=== PATIENT | male | born 1935 | race Caucasian/White ===

== ENCOUNTER 2016-06-04 03:36 | Inpatient (IN) ==
--- NOTE | 2016-06-04 04:25 | Emergency Department Note ---
Disposition Clinical Impression: RUQ pain, Hepatic lesion, Biliary colic Disposition: Admitted As Inpatient Condition: Fair Referrals: Jose Juan Colón MD [Primary Care Provider] - Forms: Work/School Release, ED Satisfaction Letter General Adult HPI - General Chief complaint: ED Abdominal Pain Stated complaint: abd pain Time Seen by Provider: 06/04/16 04:00 Source: patient, family Limitations: no limitations Nursing Notes Reviewed: Yes Vital Signs Reviewed: Yes - History of Present Illness HPI Narrative: 80 y/o male with 3 days of intermittent RUQ and epigastric pain. Usually worse after eating. Got worse at 10pm this evening. Last meal was at 5pm. Since 10 he has had constant pain in the RUQ and nausea. No surgical history. PMH of Afib on Xarelto, HTN, and DM on metformin. No fever. No CP or SOB. Radiation: non-radiation Pain Severity: severe Pain Scale: 10 Quality: aching Consistency: constant Improves with: nothing Worsens with: other (movement) Associated symptoms: Reports: denies other symptoms Treatments Prior to Arrival: none - Related Data Previous Rx's Medication Instructions Recorded Rivaroxaban [Xarelto] 20 mg PO DAILY #30 tablet 09/24/15 Allergies Allergy/AdvReac Type Severity Reaction Status Date / Time No Known Allergies Allergy Verified 09/24/15 16:26 All systems ED: reviewed and negative except as stated. Constitutional: Denies: fever Cardiovascular: Denies: chest pain Respiratory: Denies: cough Gastrointestinal: Reports: abdominal pain, nausea. Denies: vomiting, diarrhea Genitourinary: Denies: dysuria Musculoskeletal: Denies: back pain Integumentary: Denies: rash Endocrine: Denies: fatigue Past Medical History - Past Medical History Medical history: Reports: DVT, hypertension - Social History Smoking Status: Never smoker Smokeless Tobacco Status: No Alcohol use: Reports: none Drug use: Reports: none Physical Exam - General Limitations: no limitations General appearance: alert, in no apparent distress - Head Head exam: atraumatic - Eye Eye exam: Present: normal appearance - ENT ENT exam: normal exam, normal oropharynx - Neck Neck exam: Present: normal inspection - Chest Chest inspection: Present: normal inspection - Respiratory Respiratory exam: Present: normal lung sounds bilaterally. Absent: respiratory distress - Cardiovascular Cardiovascular exam: Present: regular rate, normal rhythm - Abdominal Exam Abdominal exam: Present: soft, tenderness (RUQ. Voluntary guarding. No pain in other location in abdomen. No generalized peritonitis.) - Extremities Exam Extremities exam: Present: normal inspection - Back Exam Back exam: Present: normal inspection - Neurological Exam Neurological exam: Present: alert, oriented X3 - Psychiatric Psychiatric exam: Present: normal affect, normal mood - Skin Skin exam: Present: warm, dry Course Course Narrative: Due to pain after eating in the RUQ i am concerned about his gallbladder. Will obtain labwork and a CT scan of the abd/pelvis. Will treat his pain while he is here. - Reevaluation(s) Reevaluation #1: CT shows dilated gallbladder with thickened wall and liver lesions which are consistent with malignancy. Labwork shows elevated transaminitis but no WBC count, no fever. Will page general surgery for consultation. Spoke with Dr Don who agreed to be a technical solutions consultant on this case Spoke with Dr Romero from oncology who says she will see him today. She said he will likely need a biopsy during this stay. Will call hospitalist for admission Vital Signs Temperature 97.9 F 06/04/16 03:39 Pulse Rate 90 06/04/16 03:39 Respiratory Rate 18 06/04/16 03:39 Blood Pressure 182/79 06/04/16 03:39 O2 Sat by Pulse Oximetry 95 06/04/16 03:39 Temperature 97.9 F 06/04/16 03:39 Pulse Rate 90 06/04/16 06:31 Respiratory Rate 18 06/04/16 06:31 Blood Pressure 173/103 06/04/16 06:31 O2 Sat by Pulse Oximetry 94 L 06/04/16 06:31 Oxygen Delivery Oxygen Delivery Room Air Medical Decision Making - Medical Records Medical records reviewed: Yes I reviewed the patient's medical records. - Lab Data Lab results reviewed: Yes I reviewed the patient's lab results. Result diagrams: 06/04/16 04:45 06/04/16 04:45 Lab Results 06/04/16 06/04/16 06/04/16 Range/Units 04:45 04:45 04:45 WBC 10.2 (4.3-11.1) K/mcL RBC 4.63 (4.19-5.50) M/mcL Hgb 15.5 (12.9-16.9) g/dL Hct 45.0 (37.5-50.1) % MCV 97.2 (83.0-100.0) fL MCH 33.5 H (28.0-33.3) pg MCHC 34.4 (31.6-35.5) g/dL RDW 12.5 (11.5-14.5) % Plt Count 136 L (140-400) K/mcL MPV 11.0 (9.4-12.4) fL Immature Gran % 0.4 (0-4) % Seg Neutrophils % 77.5 % Lymphocytes % 13.4 % Monocytes % 8.3 % Eosinophils % 0.1 % Basophils % 0.3 % Neutrophils # 7.9 (1.6-8.9) K/mcL Lymphocytes # 1.4 (0.6-4.6) K/mcL Monocytes # 0.9 (0.0-1.3) K/mcL Eosinophils # 0.0 (0.0-0.6) K/mcL Basophils # 0.0 (0.0-0.2) K/mcL PT (9.4-12.1) Seconds INR APTT (26.0-36.0) Seconds Sodium 138 (136-145) mEq/L Potassium 4.1 (3.5-4.5) mEq/L Chloride 102 (98-109) mEq/L Carbon Dioxide 25 (19-29) mEq/L BUN 23 (8-26) mg/dL Creatinine 1.37 H (0.72-1.25) mg/dL Est GFR ( Amer) > 60 (> 60) Est GFR (Non-Af Amer) 50 L (> 60) BUN/Creatinine Ratio 17 (6-26) Glucose 241 H (70-99) mg/dL Calculated Osmolality 298 (280-300) Lactic Acid 2.5 H (0.5-2.2) mmol/L Calcium 9.6 (8.6-10.8) mg/dL Total Bilirubin 1.4 H (0.2-1.2) mg/dL Direct Bilirubin 0.7 H (0.0-0.5) mg/dL Indirect Bilirubin 0.7 (0.0-1.2) mg/dL AST 72 H (5-34) Units/L ALT 57 H (0-55) Units/L Alkaline Phosphatase 193 H (38-126) Units/L Serum Total Protein 7.4 (6.0-8.3) g/dL Albumin 3.6 (3.5-5.0) g/dL Globulin 3.8 H (2.4-3.5) g/dL Albumin/Globulin Ratio 0.9 L (1.1-2.2) Lipase 40 (8-78) Units/L 06/04/16 Range/Units 04:45 WBC (4.3-11.1) K/mcL RBC (4.19-5.50) M/mcL Hgb (12.9-16.9) g/dL Hct (37.5-50.1) % MCV (83.0-100.0) fL MCH (28.0-33.3) pg MCHC (31.6-35.5) g/dL RDW (11.5-14.5) % Plt Count (140-400) K/mcL MPV (9.4-12.4) fL Immature Gran % (0-4) % Seg Neutrophils % % Lymphocytes % % Monocytes % % Eosinophils % % Basophils % % Neutrophils # (1.6-8.9) K/mcL Lymphocytes # (0.6-4.6) K/mcL Monocytes # (0.0-1.3) K/mcL Eosinophils # (0.0-0.6) K/mcL Basophils # (0.0-0.2) K/mcL PT 28.8 H (9.4-12.1) Seconds INR 2.6 APTT 45.0 H (26.0-36.0) Seconds Sodium (136-145) mEq/L Potassium (3.5-4.5) mEq/L Chloride (98-109) mEq/L Carbon Dioxide (19-29) mEq/L BUN (8-26) mg/dL Creatinine (0.72-1.25) mg/dL Est GFR ( Amer) (> 60) Est GFR (Non-Af Amer) (> 60) BUN/Creatinine Ratio (6-26) Glucose (70-99) mg/dL Calculated Osmolality (280-300) Lactic Acid (0.5-2.2) mmol/L Calcium (8.6-10.8) mg/dL Total Bilirubin (0.2-1.2) mg/dL Direct Bilirubin (0.0-0.5) mg/dL Indirect Bilirubin (0.0-1.2) mg/dL AST (5-34) Units/L ALT (0-55) Units/L Alkaline Phosphatase (38-126) Units/L Serum Total Protein (6.0-8.3) g/dL Albumin (3.5-5.0) g/dL Globulin (2.4-3.5) g/dL Albumin/Globulin Ratio (1.1-2.2) Lipase (8-78) Units/L - Radiology Data Radiology results reviewed: Yes I reviewed the patient's radiology results. Abdomen/Pelvis CT 06/04/16 04:09 IMPRESSION: Multifocal low-density hepatic lesions, predominantly in the superior right hepatic lobe, consistent with malignancy. Necrotic portal caval lymph nodes concerning for metastatic disease. An abnormal cardiophrenic lymph node is also present. Indeterminate nodules in the right lower lobe. Mild gallbladder distention and wall thickening with sizable calcified stone at the gallbladder neck. Marked prostatomegaly. Nonspecific"constantino mesentery" with mesenteric fat expansion. RECOMMENDATIONS: Consider further evaluation of liver lesions with biphasic CT or MRI. D/ / Jorge Patel MD / Jorge Patel MD Interpreting Provider: Jorge Patel MD Attestation Statement - Attestation Attestation: IAnshu MD, personally performed a history and physical exam of the patient and discussed their management with the resident. I reviewed the resident's note and agree with the documented findings, medical decision making , and plan of care. 80-year-old male presents to the emergency department with a complaint of right upper quadrant abdominal pain over the past few days but acutely worse tonight. Some nausea but no vomiting. No fever. On examination patient is a well-developed well-nourished elderly male in no acute distress. He is alert and oriented 3. There is no cyanosis or diaphoresis. Breath sounds are clear and equal bilaterally. Heart regular rate and rhythm. Abdomen is soft with moderate right upper quadrant tenderness on direct palpation. No guarding or rebound tenderness. Bowel sounds normal. Labs reviewed. CBC normal with mild elevation of hepatic enzymes. CT obtained and showed multiple apparent metastatic lesions within the liver with central necrosis. Patient was discussed with the surgeon hydro excavation operator and also the oncologist hydro excavation operator. The hospitalist, Dr. Martin, was consulted and accepted admission of the patient.
[2016-06-04] MEDS ORDERED: Ondansetron 4 MG/2 ML VIAL IVP ONE (04:26)
[2016-06-04] MEDS ORDERED: *HR* HYDROmorphone (PF) 1 MG/ML SYRINGE IVP ONE ×2 (04:26→06:47)
[2016-06-04 04:53] LABS: Basophils % 0.3 %; Eosinophils % 0.1 %; Hemoglobin 15.5 g/dL (12.9-16.9); Immature Granulocytes % 0.4 % (0-4); Lymphocytes # 1.4 K/mcL (0.6-4.6); Lymphocytes % 13.4 %; Mean Corpuscular HGB Conc 34.4 g/dL (31.6-35.5); Mean Corpuscular Hemoglobin 33.5 pg (28.0-33.3); Mean Corpuscular Volume 97.2 fL (83.0-100.0); Monocytes # 0.9 K/mcL (0.0-1.3); Monocytes % 8.3 %; Neutrophils # 7.9 K/mcL (1.6-8.9); Platelet Count 136 K/mcL (140-400); Red Blood Count 4.63 M/mcL (4.19-5.50); Red Cell Distribution Width 12.5 % (11.5-14.5); Segmented Neutrophils % 77.5 %
[2016-06-04 04:58] LABS: INR 2.6; Prothrombin Time 28.8 Seconds (9.4-12.1)
[2016-06-04 05:08] LABS: Alanine Aminotransferase 57 Units/L (0-55); Albumin 3.6 g/dL (3.5-5.0); Albumin/Globulin Ratio 0.9 (1.1-2.2); Alkaline Phosphatase 193 Units/L (38-126); Aspartate Amino Transferase 72 Units/L (5-34); BUN/Creatinine Ratio 17 (6-26); Bilirubin,Direct 0.7 mg/dL (0.0-0.5); Bilirubin,Indirect 0.7 mg/dL (0.0-1.2); Bilirubin,Total 1.4 mg/dL (0.2-1.2); Blood Urea Nitrogen 23 mg/dL (8-26); Calcium 9.6 mg/dL (8.6-10.8); Carbon Dioxide 25 mEq/L (19-29); Chloride 102 mEq/L (98-109); Globulin 3.8 g/dL (2.4-3.5); Glucose 241 mg/dL (70-99); Lipase 40 Units/L (8-78); Osmolality,Calculated 298 (280-300); Potassium 4.1 mEq/L (3.5-4.5); Sodium 138 mEq/L (136-145); Total Protein 7.4 g/dL (6.0-8.3); eGFR For African Americans > 60 (> 60); eGFR For Non-African Americans 50 (> 60)
[2016-06-04] MEDS ORDERED: 0.9 % Sodium Chloride 1,000 ML IVC ONE (05:46)
[2016-06-04] MEDS ORDERED: Naloxone 0.4 MG/ML INJ IVP PRN (07:50)
[2016-06-04] MEDS ORDERED: *HR* Dextrose 50 % in Water (Syg) 50 ML SYRINGE IVP PRN (07:53)
[2016-06-04] MEDS ORDERED: D5% in Water 1,000 ML IV PRN (07:53)
[2016-06-04] MEDS ORDERED: Dextrose Gel 15 GM PO PRN ×2 (07:53)
--- NOTE | 2016-06-04 08:01 | Internal Med History&Physical ---
Date of Encounter: 06/04/16 Time of Encounter: 07:30 Assessment and Plan (1) RUQ pain Current visit: Yes Status: Acute A week ago, he noticed upper abdominal discomfort with no other associated symptoms. Yesterday night, he suddenly developed severe right upper quadrant and epigastric pain. no nausea. No vomiting. No fever. No shortness of breath. No chest pain. no urinary complaints. No bleeding. He received 0.5 mg of IV Dilaudid 2 with mild improvement of his pain. CT abdomen and pelvis showed multifocal low densities hepatic lesions, necrotic portal caval lymph node, mild gallbladder wall thickening with sizable calcified stone at gallbladder neck. Patchy consolidation in the right lower lobe with volume loss. Findings in CT are suspected of malignancy and possible mild cholecystitis. Oncology and Surgery team consulted in ED. continue pain control with IV dilaudid and [facility]emetics. [facility] (2) Hepatic lesion Current visit: Yes Status: Acute plan as above. (3) HTN (hypertension) Current visit: Yes Status: Acute uncontrolled HTN. could be from pain. hold losartan due to elevated Cr. Hydralazine prn. amlodipine. close monitoring. Qualifiers: Hypertension type: essential hypertension Qualified Code(s): I10 - Essential (primary) hypertension (4) Diabetes mellitus Current visit: Yes Status: Acute sliding insulin scale. diabetic diet. Qualifiers: Diabetes mellitus type: type 2 Diabetes mellitus complication status: without complication Diabetes mellitus termite renewal inspector insulin use: without nursing home use Qualified Code(s): E11.9 - Type 2 diabetes mellitus without complications (5) DVT (deep venous thrombosis) Current visit: No Status: Chronic Patient had right pulmonary embolism and lower extremity DVT over 5 years ago. He has been on anticoagulation since that time. Currently, he takes Xarelto. 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 metoprolol bid. Qualifiers: Atrial fibrillation type: chronic Qualified Code(s): I48.2 - Chronic atrial fibrillation Internal Medicine - H&P: HPI Chief complaint: RUQ pain for 3 days Admitted From: Home Plans for Post Hospital Care: Home History of present illness: Mr. Mae is a 80 year old male with past medical history of atrial fibrillation on Xarelto, hypertension, diabetes mellitus on metformin and chronic left vocal cord paralysis for 10 years. A week ago, he noticed upper abdominal discomfort for week no other associated symptoms. Yesterday night, he suddenly developed severe right upper quadrant and epigastric pain. no nausea. No vomiting. No fever. No shortness of breath. No chest pain. no urinary complaints. No bleeding. No syncope. No headaches. No focal deficit. No lower extremity edema. He has bowel incontinence for years. In our ED, he received 0.5 mg of Dilaudid 2 with mild improvement of his abdominal pain. CT of the abdomen and pelvis revealed multiple hepatic lesions and necrotic portal caval lymph nodes suspicious for malignancy and mild gallbladder wall thickening. Patient and son are aware of his suspected diagnosis of liver cancer. Oncology service and surgery service consulted in ED. On arrival to the floor, patient still complains of right upper quadrant and epigastric pain of moderate intensity. Past Med Surg Social Fam HX - Past Medical History Medical history: DVT, hypertension - Social History Smoking Status: Never smoker Smokeless Tobacco Status: No Alcohol use: none Drug use: none Internal Medicine - H&P: Meds Rivaroxaban [Xarelto] 20 mg PO DAILY #30 tablet 09/24/15 [Rx] Atenolol [Tenormin] 50 mg PO DAILY 06/04/16 [History] Fluticasone Propionate Nasal [Flonase] 50 mcg NS DAILY 06/04/16 [History] Loratadine [Allergy Relief] 10 mg PO DAILY 06/04/16 [History] Losartan Potassium [Cozaar] 50 mg PO DAILY 06/04/16 [History] Metformin [Glucophage] 750 mg PO BID 06/04/16 [History] Multivit-Min/FA/Lycopen/Lutein [Centrum Silver Men Tablet] 1 tab PO DAILY [History] Allergies dabigatran etexilate [From Pradaxa] Adverse Reaction (Unknown, Verified 07:21) Migraine fesoterodine [From Toviaz] Adverse Reaction (Unknown, Verified 06/04/16 07:21) See Comments URINARY RETENTION lisinopril Adverse Reaction (Unknown, Verified 06/04/16 07:21) See Comments URINARY RETENTION All Systems PM: A 10-system review of systems was performed and is negative for pertinent findings except as documented above in the HPI. - Constitutional Vitals: Temp Pulse Resp BP Pulse Ox 97.9 F 90 16 179/101 94 L 06/04/16 03:39 06/04/16 06:31 06/04/16 07:38 06/04/16 07:38 06/04/16 06:31 General appearance: Present: cooperative, A&O X 3, morbidly obese, pleasant, no acute distress, answers questions appropriately - Eye Eye exam: Present: PERRL, sclera anicteric - ENT ENT exam: Present: mucous membranes moist - Neck Neck exam general surgery: Present: supple, trachea midline - Respiratory Respiratory exam: Present: decreased breath sounds (Right lower lung field). Absent: rales, wheezes - Cardiovascular Cardiovascular exam: Present: RRR - GI/Abdominal GI/Abdominal exam: Present: normal bowel sounds, soft. Absent: distended, tenderness - Extremities Exam Extremities exam: Present: pedal edema (legs: Bilateral mild swelling, varicose veins.. ) - Back Exam Back exam: Absent: CVA tenderness (L), CVA tenderness (R) - Neurological Exam Neurological exam: Present: alert, oriented X3, no focal deficits, strengths equal and symetr throughout. Absent: facial droop, speech deficit - Skin Skin exam: Absent: rash Internal Med - H&P Results - Labs CBC & Chem 7: 06/04/16 04:45 06/04/16 04:45
[2016-06-04] MEDS: *HR* HYDROmorphone (PF) 1 MG/ML SYRINGE IVP PRN ×4 (08:41→23:37)
[2016-06-04] MEDS: Pantoprazole 40 MG VIAL IVP SCH (08:42)
[2016-06-04] MEDS: *HR* OxyCODONE Immed Rel 5 MG TABLET PO PRN ×3 (08:47→23:37)
[2016-06-04] MEDS: Fluticasone Propionate Nasal 50 MCG/SPRAY BOTTLE NS SCH (08:55)
[2016-06-04] MEDS: Loratadine 10 MG TABLET PO SCH (08:55)
[2016-06-04] MEDS: amLODIPine 5 MG TABLET PO SCH (10:57)
--- NOTE | 2016-06-04 11:26 | General Surgery Consult Note ---
<Lakeshia Vidales - Last Filed: 06/04/16 11:42> Date of Encounter: 06/04/16 Time of Encounter: 11:00 Assessment and Plan (1) Cholelithiasis Current Visit: Yes Status: Acute Will order MRI to further evaluate the bile system, liver and pancreas May have clear liquids Hold Xarelto- last dose 06/03/16 evening IV antibiotics- will order Mefoxin Supportive care/pain control Consider Laparoscopic cholecystectomy with liver biopsies on Tuesday06/07/16 if patient continues to be symptomatic Qualifiers: Cholelithiasis location: gallbladder Cholecystitis presence: with cholecystitis Cholecystitis acuity: acute Biliary obstruction: without biliary obstruction Qualified Code(s): K80.00 - Calculus of gallbladder with acute cholecystitis without obstruction (2) Hepatic lesion Current Visit: Yes Status: Acute MRI to further evaluate Hold Xarelto- last dose 06/03/16 evening Patient will need biopsies when appropriate Consider Laparoscopic cholecystectomy with liver biopsies on Tuesday06/07/16 if patient continues to be symptomatic (3) Atrial fibrillation Current Visit: Yes Status: Chronic Rate controlled Management per medicine service Hold Xarelto- last dose 06/03/16 evening Qualifiers: Atrial fibrillation type: chronic Qualified Code(s): I48.2 - Chronic atrial fibrillation (4) Diabetes mellitus Current Visit: Yes Status: Chronic Hyperglycemia noted Management per medicine service Qualifiers: Diabetes mellitus type: type 2 Diabetes mellitus complication status: without complication Diabetes mellitus jail insulin use: without jail use Qualified Code(s): E11.9 - Type 2 diabetes mellitus without complications (5) HTN (hypertension) Current Visit: Yes Status: Chronic Hypertensive Management per medicine service Qualifiers: Hypertension type: essential hypertension Qualified Code(s): I10 - Essential (primary) hypertension (6) RUQ pain Current Visit: Yes Status: Acute MRI to further evaluate the bile system, liver and pancreas Supportive care/pain control (7) 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 Mae is a very pleasant 80 year old male with a past medical history significant for Atrial Fibrillation, DVT, HTN, pulmonary embolism, left vocal cord paralysis, CVA, type 2 diabetes mellitus, alpha 1 antitrypsen deficiency. He presents to the hospital with a 1 week history of RUQ abdominal discomfort. He states that the pain has been intermittent up until last night. He states that the pain is now severe and constant. Admits to radiating into the back and shoulders. Denies any aggrevating or alleviating factors. Denies any nausea/ vomiting. Denies any changes in bowel habits. He typically has a bowel movement daily and admits to occasional diarrhea which is chronic. Denies any fevers/ chills. Denies any reflux. Admits to shortness of breath which is chronic (may be a little worse than normal). Denies any chest pains. Denies any difficulty with urination. Admit to 5-10lb. unexpected weight loss over the past few weeks. He has had an abnormal CT scan which shows evidence of gallstones/ cholecystitis, liver lesions and necrotic portal lymph nodes. We have been asked to see and evaluate the patient for surgical recommendations. Past Med Surg Social Fam HX - Past Medical History Source: patient, old records reviewed Medical history: atrial fibrillation, cancer (Melanoma left forearm), DVT, diabetes (Type 2), hypertension, pulmonary embolus, other (left vocal cord paralysis, alpha 1 antitrypsein deficiency) Psychiatric history: no psych history - Past Surgical History Surgical History: other (Greenlight photovaporization of the prostate 2013, colonoscopy greater than 10 years ago (normal with Dr. Hunter), Excision of melanoma from left forearm) - Social History Smoking Status: Never smoker Smokeless Tobacco Status: No Alcohol use: none Drug use: none Occupational status: retired Current living situation: Home - Independent Activity Level: Independent ambulation - Family History Mother Living Status: Hx Family Cancer: Yes (breast cancer) Father Living Status: Age at : 52 Cause of : Myocardial infarction Hx Family Cardiac Disorders: Yes Sister Living Status: Cause of : Alzheimer's X 2, Liver disease X 1 Hx Family Endocrine Disorder: Yes (Diabetes Mellitus) Hx Family Neurologic Disorders: Yes (CVA) Son Living Status: Still Living Hx Family Medical Disorders: Yes (alpha 1 antitrysin deficiency) Medications and Allergies Rivaroxaban [Xarelto] 20 mg PO DAILY #30 tablet 09/24/15 [Rx] Atenolol [Tenormin] 50 mg PO DAILY 06/04/16 [History] Fluticasone Propionate Nasal [Flonase] 50 mcg NS DAILY 06/04/16 [History] Loratadine [Allergy Relief] 10 mg PO DAILY 06/04/16 [History] Losartan Potassium [Cozaar] 50 mg PO DAILY 06/04/16 [History] Metformin [Glucophage] 750 mg PO BID 06/04/16 [History] Multivit-Min/FA/Lycopen/Lutein [Centrum Silver Men Tablet] 1 tab PO DAILY [History] Allergies dabigatran etexilate [From Pradaxa] Adverse Reaction (Unknown, Verified 07:21) Migraine fesoterodine [From Toviaz] Adverse Reaction (Unknown, Verified 06/04/16 07:21) See Comments URINARY RETENTION lisinopril Adverse Reaction (Unknown, Verified 06/04/16 07:21) See Comments URINARY RETENTION Review of Systems All systems PM: reviewed and no additional remarkable complaints except as stated (in the HPI) All systems PM: A 10-system review of systems was performed and is negative for pertinent findings except as documented above in the HPI. General Surgery Exam Initial Vital Signs Temp Pulse Resp BP Pulse Ox 97.9 F 90 18 182/79 95 06/04/16 03:39 06/04/16 03:39 06/04/16 03:39 06/04/16 03:39 06/04/16 03:39 - General physical appearance well developed, well nourished, moderate pain - Eyes normal ocular movement - ENT normal mucosa, atraumatic, normocephalic - Neck trachea midline - Respiratory normal respiratory effort, clear to auscultation - Cardiovascular Cardiovascular exam: Present: irregular rhythm (HR- 80's) - Abdomen Abdomen general surgery: Present: bowel sounds present, soft, tender Abdominal Tenderness: Present: RUQ - Integumentary Integumentary general surgery: Present: warm and dry - Neurologic Present: CN 2-12 grossly intact - Psychiatric Psychiatric general surgery: Present: A&Ox3 Exam Initial Vital Signs Temp Pulse Resp BP Pulse Ox 97.9 F 90 18 182/79 95 06/04/16 03:39 06/04/16 03:39 06/04/16 03:39 06/04/16 03:39 06/04/16 03:39 Results - Labs 06/04/16 04:45 06/04/16 04:45 Abnormal lab results MCH 33.5 pg (28.0-33.3) H 06/04/16 04:45 Plt Count 136 K/mcL (140-400) L 06/04/16 04:45 PT 28.8 Seconds (9.4-12.1) H 06/04/16 04:45 APTT 45.0 Seconds (26.0-36.0) H 06/04/16 04:45 Creatinine 1.37 mg/dL (0.72-1.25) H 06/04/16 04:45 Est GFR (Non-Af Amer) 50 (> 60) L 06/04/16 04:45 Glucose 241 mg/dL (70-99) H 06/04/16 04:45 POC Glucose 194 (58-89) H 06/04/16 11:15 Lactic Acid 2.5 mmol/L (0.5-2.2) H 06/04/16 04:45 Total Bilirubin 1.4 mg/dL (0.2-1.2) H 06/04/16 04:45 Direct Bilirubin 0.7 mg/dL (0.0-0.5) H 06/04/16 04:45 AST 72 Units/L (5-34) H 06/04/16 04:45 ALT 57 Units/L (0-55) H 06/04/16 04:45 Alkaline Phosphatase 193 Units/L (38-126) H 06/04/16 04:45 Globulin 3.8 g/dL (2.4-3.5) H 06/04/16 04:45 Albumin/Globulin Ratio 0.9 (1.1-2.2) L 06/04/16 04:45 All other labs normal. - Imaging CT scan - abdomen: report reviewed CT scan - pelvis: report reviewed US - abdomen: report reviewed Additional studies: Abdomen/Pelvis CT 06/04/16 04:09 IMPRESSION: Multifocal low-density hepatic lesions, predominantly in the superior right hepatic lobe, consistent with malignancy. Necrotic portal caval lymph nodes concerning for metastatic disease. An abnormal cardiophrenic lymph node is also present. Indeterminate nodules in the right lower lobe. Mild gallbladder distention and wall thickening with sizable calcified stone at the gallbladder neck. Marked prostatomegaly. Nonspecific"constantino mesentery" with mesenteric fat expansion. RECOMMENDATIONS: Consider further evaluation of liver lesions with biphasic CT or MRI. D/ / Jorge Patel MD / Jorge Patel MD Interpreting Provider: Jorge Patel MD Gallbladder Ultrasound 06/04/16 09:00 IMPRESSION: 1. There are gallstones as well as tumefactive sludge in the gallbladder lumen with a markedly thickened wall and hyperemia along the gallbladder wall. Findings are concerning for acute cholecystitis. 2. The large low-attenuation area noted in the right lobe of the liver, just beneath the diaphragm on the previous CT is not well visualized on the current exam. This may be related to a malignancy versus hepatic abscesses. 3. The ascites seen on the previous CT surrounding the liver is also poorly visualized on the current ultrasound. D/ / 06/04/2016 11:27:40 Forrest Hodgson MD / [email or web address] Interpreting Provider: Forrest Hodgson MD Consult Discharge Plan - Plan Referrals: Jose Juan Colón MD [Primary Care Provider] - - Attending Attestation I examined this patient and my medical decision-making was reviewed with the BAG CUTTER/PA/Advanced Practice Nurse/Resident Physician. I agree with the documented findings, disposition and treatment plan as described except to the extent set forth below. <Jack Don - Last Filed: 06/04/16 13:10> Date of Encounter: 06/04/16 Review of Systems All systems PM: A 10-system review of systems was performed and is negative for pertinent findings except as documented above in the HPI. General Surgery Exam Initial Vital Signs Temp Pulse Resp BP Pulse Ox 97.9 F 90 18 182/79 95 06/04/16 03:39 06/04/16 03:39 06/04/16 03:39 06/04/16 03:39 06/04/16 03:39 Exam Initial Vital Signs Temp Pulse Resp BP Pulse Ox 97.9 F 90 18 182/79 95 06/04/16 03:39 06/04/16 03:39 06/04/16 03:39 06/04/16 03:39 06/04/16 03:39 Results - Labs 06/04/16 04:45 06/04/16 04:45 Abnormal lab results MCH 33.5 pg (28.0-33.3) H 06/04/16 04:45 Plt Count 136 K/mcL (140-400) L 06/04/16 04:45 PT 28.8 Seconds (9.4-12.1) H 06/04/16 04:45 APTT 45.0 Seconds (26.0-36.0) H 06/04/16 04:45 Creatinine 1.37 mg/dL (0.72-1.25) H 06/04/16 04:45 Est GFR (Non-Af Amer) 50 (> 60) L 06/04/16 04:45 Glucose 241 mg/dL (70-99) H 06/04/16 04:45 POC Glucose 194 (58-89) H 06/04/16 11:15 Lactic Acid 2.5 mmol/L (0.5-2.2) H 06/04/16 04:45 Total Bilirubin 1.4 mg/dL (0.2-1.2) H 06/04/16 04:45 Direct Bilirubin 0.7 mg/dL (0.0-0.5) H 06/04/16 04:45 AST 72 Units/L (5-34) H 06/04/16 04:45 ALT 57 Units/L (0-55) H 06/04/16 04:45 Alkaline Phosphatase 193 Units/L (38-126) H 06/04/16 04:45 Globulin 3.8 g/dL (2.4-3.5) H 06/04/16 04:45 Albumin/Globulin Ratio 0.9 (1.1-2.2) L 06/04/16 04:45 All other labs normal. - Attending Attestation The patient is seen in evaluation on the afternoon of 06/04/2016. I agree with the above documentation. It is unclear whether the this process clinically represents acute cholecystitis with cholelithiasis or malignancy. I think a reasonable course of action is to treat him with a short course of antibiotics and hold his Plavix medicine. In several days we will be able to proceed laparoscopically with cholecystectomy and possible laparoscopic liver biopsy, or , hepatic biopsy in interventional radiology department to see if diagnostic tissue can be obtained for overall clinical planning area Jack Don MD FACS
[2016-06-04] MEDS: Insulin LISPRO 300 UNITS/3 ML VIAL SQ SCH ×3 (13:00→20:43)
[2016-06-04] MEDS: cefOXitin 2,000 MG in D5% in Water (Mini-Bag+) 100 ML IVPB SCH ×3 (13:01→23:37)
[2016-06-04 14:33] LABS: Bilirubin,Urine Negative (Negative); Blood,Urine Negative (Negative); Clarity,Urine Clear (Clear); Color,Urine Dark Yellow (Yellow); Glucose,Urine (UA) Normal (Normal); Ketones,Urine Negative (Negative); Leukocyte Esterase,Urine Negative (Negative); Nitrite,Urine Negative (Negative); Protein,Urine 30 mg/dL (Neg-Trace); Specific Gravity,Urine > 1.030 (1.010-1.025); Urobilinogen,Urine Normal (Normal)
[2016-06-04 14:35] LABS: Bacteria,Urine None Seen per hpf (None-Few); Hyaline Casts,Urine None Seen per lpf (None-Few); RBC,Urine 0-3 per hpf (0-3); Squamous Epithelial Cell,Urine Few per lpf (None-Few); WBC,Urine 0-3 per hpf (0-3)
--- NOTE | 2016-06-04 15:42 | Oncology Inp Consult Note ---
Date of Encounter: 06/07/16 Time of Encounter: 15:37 Assessment and Plan (1) Hepatic lesion Status: Acute Assessment and plan: Contiguous lobulated lesion in the dome of the liver with fluid consistency. I reviewed the CT chest dated 06/11/2008 he did not have that lesion at that time. MRI of the abdomen favored more of cystic metastasis than abscess Also necrotic lymph nodes in the upper abdomen Jaundice with direct bilirubin 2.6. AST ALT only mildly elevated. Alkaline phosphatase has actually come down to 150 range from 190 range on admission Elevated neutrophil count of 14,000. He is on IV antibiotics (2) RUQ pain Status: Acute Assessment and plan: Right upper quadrant ultrasound 06/04/2016 showed gallstones with sludge in the gallbladder with markedly thickened wall cyst in with acute cholecystitis. This could be most likely contributing to the pain. Also necrotic lymph nodes near the gallbladder in the portacaval region which could be inflammatory but malignancy cannot be ruled out (3) Atrial fibrillation Status: Chronic Assessment and plan: Currently on Xarelto which is on hold. On admission INR elevated at 2.6. This has come down to 1.5 the next day. Xarelto usually does not elevated INR but that could be the cause of the INR elevation Qualifiers: Atrial fibrillation type: chronic Qualified Code(s): I48.2 - Chronic atrial fibrillation - Data of Consult Patient: known to practice within the last 3 years Requesting Physician: Kassidy Jones MD Primary Care Provider: Jose Juan Colón MD - Consult Narrative Reason for consult: Acute right upper quadrant pain History of present illness: Mr. Mae is a 80 year old male admitted to the emergency room with the acute right upper quadrant pain got worse after eating. His main having pain since 10 PM yesterday. Also nausea. CT of abdomen and pelvis with contrast 06/04/2016 showed mildly distended gallbladder with a 2.8 cm calcified gallstone in the gallbladder neck 2 centrally necrotic portacaval lymph nodes largest 3 x 2.2 cm 2 x 1.1. Pericardial phrenic lymph node Contiguous multilobulated hypodensity lesion in the liver in the dome near diaphragm. It has a fluid density around 13 consult units. Also mild perihepatic fluid collection No other abdominal lesions Significant enlarged prostate AST around 72 and ALT around 60. Alkaline phosphatase 193. Total bilirubin 1.4 direct bilirubin 0.7. CBC unremarkable MRI liver did show liver fibrosis but no cirrhosis Past medical history Heterozygous for alpha-1 antitrypsin deficiency. His sister with liver cirrhosis and alpha-1 antitrypsin deficiency Type 2 diabetes mellitus controlled on Glucophage Atrial fibrillation on Xarelto Hypertension BPH. PSA 1.93 on March 2015 Hematological history Evaluated by Dr. Neely 07/30/2013 was considered a hypercoagulable history of CVA in 2012 when he stop Coumadin briefly and he was started on Xarelto at that time. Past Med Surg Social Fam HX - Past Medical History Medical history: atrial fibrillation, cancer (Melanoma left forearm), DVT, diabetes (Type 2), hypertension, pulmonary embolus, other (left vocal cord paralysis, alpha 1 antitrypsein deficiency) Psychiatric history: no psych history - Past Surgical History Surgical History: other (Greenlight photovaporization of the prostate 2013, colonoscopy greater than 10 years ago (normal with Dr. Hunter), Excision of melanoma from left forearm) - Social History Smoking Status: Never smoker Smokeless Tobacco Status: No Alcohol use: none Drug use: none - Family History Mother Living Status: Hx Family Cancer: Yes (breast cancer) Father Living Status: Age at : 52 Cause of : Myocardial infarction Hx Family Cardiac Disorders: Yes Sister Living Status: Cause of : Alzheimer's X 2, Liver disease X 1 Hx Family Endocrine Disorder: Yes (Diabetes Mellitus) Hx Family Neurologic Disorders: Yes (CVA) Son Living Status: Still Living Hx Family Medical Disorders: Yes (alpha 1 antitrysin deficiency) Medications and Allergies Rivaroxaban [Xarelto] 20 mg PO DAILY #30 tablet 09/24/15 [Rx] Atenolol [Tenormin] 50 mg PO DAILY 06/04/16 [History] Fluticasone Propionate Nasal [Flonase] 50 mcg NS DAILY 06/04/16 [History] Loratadine [Allergy Relief] 10 mg PO DAILY 06/04/16 [History] Losartan Potassium [Cozaar] 50 mg PO DAILY 06/04/16 [History] Metformin [Glucophage] 750 mg PO BID 06/04/16 [History] Multivit-Min/FA/Lycopen/Lutein [Centrum Silver Men Tablet] 1 tab PO DAILY [History] Allergies dabigatran etexilate [From Pradaxa] Adverse Reaction (Unknown, Verified 07:21) Migraine fesoterodine [From Toviaz] Adverse Reaction (Unknown, Verified 06/04/16 07:21) See Comments URINARY RETENTION lisinopril Adverse Reaction (Unknown, Verified 06/04/16 07:21) See Comments URINARY RETENTION Review of systems: Right upper quadrant pain. Nausea vomiting. Oncology - Exam - Constitutional Vitals: Temp Pulse Resp BP Pulse Ox 98.7 F 86 17 168/86 98 06/04/16 10:31 06/04/16 10:31 06/04/16 10:31 06/04/16 10:31 06/04/16 10:32 Exam: GENERAL: Alert and oriented, well appearing. Mental Status: Affect appropriate for circumstances HEENT: Sclerae anicteric. No mucositis or thrush. No other oral or pharyngeal lesions or erythema. Skin: No rashes or petechiae. No evidence of skin malignancy Lymph nodes: No cervical, supraclavicular, axillary, or inguinal adenopathy. Lungs: Clear to auscultation and percussion bilaterally. Cardiovascular: Regular rate and rhythm. No gallops, murmurs, or rubs. Abdomen: Soft, tenderness in the epigastrium and right upper quadrant Extremities: No edema. No calf swelling or tenderness. No joint deformity. Neurologic: Alert, cranial nerves II-XII intact; normal gait; no focal weakness or sensory abnormalities. Oncology - Results - Labs Labs: Urine 06/04/16 Range/Units 14:16 Urine Color Dark Yellow (Yellow) Urine Clarity Clear (Clear) Urine pH 5.0 (5.0-8.0) pH Units Ur Specific [place] > 1.030 H (1.010-1.025) Urine Protein 30 H (Neg-Trace) mg/dL Urine Glucose (UA) Normal (Normal) mg/dL Consult Discharge Plan - Plan Referrals: Jose Juan Colón MD [Primary Care Provider] -
[2016-06-04] MEDS: *HR* Enoxaparin 60 MG/0.6 ML SYRINGE SQ SCH (20:42)
[2016-06-05 03:57] LABS: Basophils % 0.2 %; Hematocrit 43.4 % (37.5-50.1); Hemoglobin 14.6 g/dL (12.9-16.9); Immature Granulocytes % 0.7 % (0-4); Lymphocytes # 1.5 K/mcL (0.6-4.6); Lymphocytes % 9.3 %; Mean Corpuscular HGB Conc 33.6 g/dL (31.6-35.5); Mean Corpuscular Volume 100.9 fL (83.0-100.0); Mean Platelet Volume 11.5 fL (9.4-12.4); Monocytes # 1.4 K/mcL (0.0-1.3); Monocytes % 8.5 %; Neutrophils # 13.3 K/mcL (1.6-8.9); Platelet Count 134 K/mcL (140-400); Red Cell Distribution Width 12.9 % (11.5-14.5); Segmented Neutrophils % 81.3 %
[2016-06-05 04:01] LABS: INR 1.5; Prothrombin Time 16.5 Seconds (9.4-12.1)
[2016-06-05 04:03] LABS: Activated Partial Thrombo Time 39.5 Seconds (26.0-36.0)
[2016-06-05 04:10] LABS: Alanine Aminotransferase 53 Units/L (0-55); Albumin/Globulin Ratio 0.8 (1.1-2.2); Alkaline Phosphatase 164 Units/L (38-126); Aspartate Amino Transferase 61 Units/L (5-34); BUN/Creatinine Ratio 13 (6-26); Blood Urea Nitrogen 16 mg/dL (8-26); Calcium 8.7 mg/dL (8.6-10.8); Carbon Dioxide 23 mEq/L (19-29); Chloride 102 mEq/L (98-109); Glucose 199 mg/dL (70-99); Magnesium 1.6 mg/dL (1.6-2.6); Osmolality,Calculated 287 (280-300); Phosphorous 3.8 mg/dL (2.3-4.7); Potassium 4.4 mEq/L (3.5-4.5); Sodium 135 mEq/L (136-145); eGFR For African Americans > 60 (> 60); eGFR For Non-African Americans 54 (> 60)
[2016-06-05 04:25] LABS: Bilirubin,Total 3.1 mg/dL (0.2-1.2)
[2016-06-05] MEDS: *HR* OxyCODONE Immed Rel 5 MG TABLET PO PRN ×2 (07:52→16:09)
[2016-06-05] MEDS: amLODIPine 5 MG TABLET PO SCH (07:52)
[2016-06-05] MEDS: *HR* HYDROmorphone (PF) 1 MG/ML SYRINGE IVP PRN ×3 (07:52→16:08)
[2016-06-05] MEDS: Loratadine 10 MG TABLET PO SCH (07:53)
[2016-06-05] MEDS: cefOXitin 2,000 MG in D5% in Water (Mini-Bag+) 100 ML IVPB SCH ×2 (08:00→16:10)
[2016-06-05] MEDS: Insulin LISPRO 300 UNITS/3 ML VIAL SQ SCH ×4 (08:01→20:53)
[2016-06-05] MEDS: *HR* Enoxaparin 60 MG/0.6 ML SYRINGE SQ SCH (08:02)
[2016-06-05] MEDS: Pantoprazole 40 MG VIAL IVP SCH (08:02)
[2016-06-05] MEDS: Fluticasone Propionate Nasal 50 MCG/SPRAY BOTTLE NS SCH (08:02)
--- NOTE | 2016-06-05 10:06 | General Surgery Progress Note ---
Date of Encounter: 06/05/16 Time of Encounter: 10:04 - Assessment and Plan (1) Cholelithiasis Current Visit: Yes Status: Acute Noted increase in WBC and bilirubin. Unsure if this is related to a bilary obstructive process or related to the liver lesion. Please see below. Qualifiers: Cholelithiasis location: gallbladder Cholecystitis presence: with cholecystitis Cholecystitis acuity: acute Biliary obstruction: without biliary obstruction Qualified Code(s): K80.00 - Calculus of gallbladder with acute cholecystitis without obstruction (2) Hepatic lesion Current Visit: Yes Status: Acute Patient with rising total bilirubin level and WBC. I reviewed the MRI images and results as well as the CT scan images. Based on the possibility that the change or increase in the bilirubin may be related to hepatocellular disease, a biliary process, or a pancreatic process (such as pancreatic cancer metastatic to the liver) I will go ahead and consult GI for further evaluation. Subjective Patient reports: still having pain (Noted tenderness in the RUQ. No nausea or vomiting. No BMs since .) Objective Vital Signs - Last 8 Hours Temp Pulse Resp BP Pulse Ox 06/05/16 07:53 92 L 06/05/16 07:04 97.9 F 101 17 163/85 92 L 06/05/16 04:16 97.8 F 68 18 134/84 93 L Intake and Output 06/04/16 06/05/16 06/05/16 23:59 07:59 15:59 Intake Total 1854 / 1854 1446 / 1446 720 / 720 Output Total 250 / 250 300 / 300 Balance 1604 / 1604 1146 / 1146 720 / 720 Intake: IV Fluids 654 / 654 546 / 546 0.45% Sodium Chloride 554 / 554 446 / 446 1000 Ml 1000 Ml 1,000 ML @ 60 mls/hr IVC .[id number] ETIEN[facility] Rx#:[id number] Mefoxin 2,000 MG In 100 / 100 100 / 100 Dextrose 5% (Minibag+) 100 ML 100 ML @ 200 mls/ hr IVPB Q8HR ETIENNE Rx#: [id number] Oral 1200 / 1200 900 / 900 720 / 720 Output: Urine 250 / 250 300 / 300 Other: Meal Breakfast # Voids 1 # Urine Diapers 1 Weight 100.2 kg Blood Glucose* 219 183 Patient Weight 06/05/16 23:59 Weight 100.2 kg - Abdomen Abdomen: Present: bowel sounds present, soft, tender (RUQ. No masses.) - Labs 06/05/16 11:12 06/05/16 03:46 Diabetes panel 06/05/16 Range/Units 03:46 Sodium 135 L (136-145) mEq/L Potassium 4.4 (3.5-4.5) mEq/L Chloride 102 (98-109) mEq/L Carbon Dioxide 23 (19-29) mEq/L BUN 16 (8-26) mg/dL Creatinine 1.28 H (0.72-1.25) mg/dL Glucose 199 H (70-99) mg/dL Calcium 8.7 (8.6-10.8) mg/dL AST 61 H (5-34) Units/L ALT 53 (0-55) Units/L Alkaline Phosphatase 164 H (38-126) Units/L Albumin 3.0 L (3.5-5.0) g/dL Calcium panel 06/05/16 Range/Units 03:46 Calcium 8.7 (8.6-10.8) mg/dL Phosphorus 3.8 (2.3-4.7) mg/dL Albumin 3.0 L (3.5-5.0) g/dL Pituitary panel 06/05/16 Range/Units 03:46 Sodium 135 L (136-145) mEq/L Potassium 4.4 (3.5-4.5) mEq/L Chloride 102 (98-109) mEq/L Carbon Dioxide 23 (19-29) mEq/L BUN 16 (8-26) mg/dL Creatinine 1.28 H (0.72-1.25) mg/dL Glucose 199 H (70-99) mg/dL Calcium 8.7 (8.6-10.8) mg/dL Adrenal panel 06/05/16 Range/Units 03:46 Sodium 135 L (136-145) mEq/L Potassium 4.4 (3.5-4.5) mEq/L Chloride 102 (98-109) mEq/L Carbon Dioxide 23 (19-29) mEq/L BUN 16 (8-26) mg/dL Creatinine 1.28 H (0.72-1.25) mg/dL Glucose 199 H (70-99) mg/dL Calcium 8.7 (8.6-10.8) mg/dL Total Bilirubin 3.1 H D (0.2-1.2) mg/dL AST 61 H (5-34) Units/L ALT 53 (0-55) Units/L Alkaline Phosphatase 164 H (38-126) Units/L Albumin 3.0 L (3.5-5.0) g/dL Consult Discharge Plan - Plan Referrals: Jose Juan Colón MD [Primary Care Provider] -
[2016-06-05 10:19] LABS: Bilirubin,Indirect 1.4 mg/dL (0.0-1.2)
[2016-06-05 10:20] LABS: Bilirubin,Direct 1.7 mg/dL (0.0-0.5)
[2016-06-05] MEDS ORDERED: *HR* Heparin 5,000 UNIT/ML VIAL IVP PRN ×2 (10:52)
[2016-06-05] MEDS ORDERED: *HR* Heparin 5,000 UNIT/ML VIAL IVP ONE (10:52)
--- NOTE | 2016-06-05 10:57 | Internal Med Progress Note ---
Date of Encounter: 06/05/16 Time of Encounter: 10:30 - Assessment and plan (1) Hepatic lesion Current Visit: Yes Status: Acute Assessment and plan: Multiple imaging studies reviewed. Unclear hepatic lesion, less likely hemangioma, less likely liver abscess given his history and no risk factors. Discussed with oncology, may require liver biopsy when stable. Continue to monitor. (2) RUQ pain Current Visit: Yes Status: Acute Assessment and plan: Unclear diagnosis of acute cholecystitis. Continue pain control with when necessary IV morphine and oral Percocet. Clear liquid diet as tolerated. We will start stool softeners and laxatives for ongoing constipation. Surgery on board, with follow-up recommendations. Recommend GI consult due to elevated bilirubin, mildly elevated AST and ALP along with liver lesions. Patient was noted to be on long-term anticoagulation, which is currently being held for possible cholecystectomy and liver biopsy. We will start IV heparin drip for continuing anticoagulation as patient is noted to be a high risk for stroke due to underlying atrial fibrillation and past history of CVA. 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 Anticoagulation with IV heparin. Qualifiers: Atrial fibrillation type: chronic Qualified Code(s): I48.2 - Chronic atrial fibrillation (5) Diabetes mellitus Current Visit: Yes Status: Chronic Assessment and plan: Accu-Chek blood glucose monitoring with sliding scale insulin. Diabetic diet. Qualifiers: Diabetes mellitus type: type 2 Diabetes mellitus complication status: with unspecified complications Diabetes mellitus terminal carman insulin use: without terminal carman use Qualified Code(s): E11.8 - Type 2 diabetes mellitus with unspecified complications (6) HTN (hypertension) Current Visit: Yes Status: Chronic Qualifiers: Hypertension type: essential hypertension Qualified Code(s): I10 - Essential (primary) hypertension (7) DVT (deep venous thrombosis) Current Visit: No Status: Inactive Qualifiers: DVT location: lower extremity Affected thrombotic vein of extremity: unspecified lower extremity distal vein Laterality: right Chronicity: chronic Qualified Code(s): 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 . We will hold Lovenox and start IV heparin due to renal dysfunction. Avoid nephrotoxic agents. Qualifiers: Chronic kidney disease stage: stage 3 (moderate) Qualified Code(s): N18.3 - Chronic kidney disease, stage 3 (moderate) - Subjective Interval history: Feels better. Improving right-sided abdominal pain, controlled with pain medications. Able to tolerate clear liquid diet. Reports passing some flatus but no bowel movements since 3 days. No fever, chest pain, shortness of breath. - Constitutional Vitals: Temp Pulse Resp BP Pulse Ox 97.9 F 101 17 163/85 92 L 06/05/16 07:04 06/05/16 07:04 06/05/16 07:04 06/05/16 07:04 06/05/16 07:53 General appearance: Present: cooperative, A&O X 3, answers questions appropriately - Head Head exam: Present: atraumatic, normocephalic - Neck Neck exam general surgery: Present: supple, trachea midline. Absent: lymphadenopathy - Respiratory Respiratory exam: Present: CTAB. Absent: accessory muscle use, rales, rhonchi, wheezes - Cardiovascular Cardiovascular exam: Present: irregular rhythm, +S1, +S2. Absent: diastolic murmur, gallop, rubs, systolic murmur - GI/Abdominal GI/Abdominal exam: Present: firm (Mild tenderness and right upper quadrant), normal bowel sounds, no peritoneal signs. Absent: distended, tenderness - Extremities Exam Extremities exam: Present: pedal edema (Trace pedal edema bilateral lower legs) , warm, radial pulses palpable and symetrical. Absent: calf tenderness, cyanotic - Neurological Exam Neurological exam: Present: CN II-XII intact, oriented X3, no focal deficits. Absent: pronater drift, facial droop, speech deficit - Skin Skin exam: Present: dry, intact Internal Medicine: Result - Labs CBC & Chem 7: 06/05/16 03:46 06/05/16 03:46 Labs: Short CBC 06/05/16 Range/Units 03:46 WBC 16.3 H D (4.3-11.1) K/mcL Hgb 14.6 (12.9-16.9) g/dL Hct 43.4 (37.5-50.1) % Plt Count 134 L (140-400) K/mcL Neutrophils # 13.3 H (1.6-8.9) K/mcL BMP 02/18/17 03:46 Sodium 135 L Potassium 4.4 Chloride 102 Carbon Dioxide 23 BUN 16 Creatinine 1.28 H Glucose 199 H Calcium 8.7 Liver Function 06/05/16 Range/Units 03:46 Total Bilirubin 3.1 H D (0.2-1.2) mg/dL Direct Bilirubin 1.7 H D (0.0-0.5) mg/dL AST 61 H (5-34) Units/L ALT 53 (0-55) Units/L Alkaline Phosphatase 164 H (38-126) Units/L Albumin 3.0 L (3.5-5.0) g/dL Urine 06/04/16 Range/Units 14:16 Urine Color Dark Yellow (Yellow) Urine Clarity Clear (Clear) Urine pH 5.0 (5.0-8.0) pH Units Ur Specific Squires > 1.030 H (1.010-1.025) Urine Protein 30 H (Neg-Trace) mg/dL Urine Glucose (UA) Normal (Normal) mg/dL - ABG Interpretation ABG results: PT/INR, D-dimer PT 16.5 Seconds (9.4-12.1) H 06/05/16 03:46 - Impressions Impressions Abdomen/Pelvis Ultrasound 06/04/16 09:00 IMPRESSION: 1. Hepatopetal flow was noted in the portal vein. 2. The right, middle, and left hepatic veins are patent. 3. The hepatic artery is patent. D/ / 06/04/2016 12:40:17 Forrest Hodgson MD / [facility] Interpreting Provider: Forrest Hodgson MD Gallbladder Ultrasound 06/04/16 09:00 IMPRESSION: 1. There are gallstones as well as tumefactive sludge in the gallbladder lumen with a markedly thickened wall and hyperemia along the gallbladder wall. Findings are concerning for acute cholecystitis. 2. The large low-attenuation area noted in the right lobe of the liver, just beneath the diaphragm on the previous CT is not well visualized on the current exam. This may be related to a malignancy versus hepatic abscesses. 3. The ascites seen on the previous CT surrounding the liver is also poorly visualized on the current ultrasound. D/ / 06/04/2016 11:27:40 Forrest Hodgson MD / [facility] Interpreting Provider: Forrest Hodgson MD Abdomen MRI 06/04/16 12:57 IMPRESSION: 1. Mild diffuse liver fibrosis mild diffuse liver fibrosis. 2. Confluent lesion in the right hepatic lobe with faint peripheral enhancement. Imaging characteristics are nonspecific. Cystic metastasis may be favored based upon imaging characteristics. Please correlate with any primary site of malignancy. Hepatocellular carcinoma is considered less likely without significant cirrhotic change. Liver abscess on likely given provided history and diffusion appearance. Biopsy recommended. 3. Portacaval lymphadenopathy. 4. Gallstone in the gallbladder neck with sludge noted in the lumen and mild gallbladder mucosal thickening. No inflammation to suggest acute cholecystitis. D/ / Roman Davila MD / Roman Davila MD Interpreting Provider: Roman Davila MD Consult Discharge Plan - Plan Referrals: Jose Juan Colón MD [Primary Care Provider] -
[2016-06-05 11:23] LABS: Hematocrit 44.6 % (37.5-50.1); Hemoglobin 14.7 g/dL (12.9-16.9); Mean Corpuscular Hemoglobin 33.5 pg (28.0-33.3); Mean Corpuscular Volume 101.6 fL (83.0-100.0); Mean Platelet Volume 11.3 fL (9.4-12.4); Platelet Count 145 K/mcL (140-400); Red Blood Count 4.39 M/mcL (4.19-5.50); Red Cell Distribution Width 12.8 % (11.5-14.5)
[2016-06-05 11:27] LABS: INR 1.5; Prothrombin Time 15.9 Seconds (9.4-12.1)
[2016-06-05] MEDS: 0.9 % Sodium Chloride 1,000 ML IVC SCH (11:31)
[2016-06-05] MEDS: Heparin 25,000 UNIT/500 ML D5W 25,000 UNIT/500 ML MLS IVC SCH (11:52)
--- NOTE | 2016-06-05 15:26 | Gastroenterology Consult Note ---
Date of Encounter: 06/05/16 Time of Encounter: 15:00 - Assessment and plan (1) Hepatic lesion Current Visit: Yes Status: Acute Assessment and plan: In this patient with slight nodularity of the liver which is concerning for compensated cirrhosis. Liver lesion is concerning for cancer versus an abscess patient also has diffuse lymphadenopathy more pronounced in the abdomen. Currently patient is on IV antibiotics but today his white count is elevated to 17,000. Clinically he does not look septic. Plan was discussed with Dr. Aranda and he will need biopsy of the liver lesion. Currently does not have any obstruction of the biliary system. If White count continued to rise then he will need broadening of ANTIBIOTIC coverage (2) Cholelithiasis Current Visit: Yes Status: Acute Assessment and plan: large gallbladder stone along with ultrasound finding concerning for questionable chronic cholecystitis. As There is no biliary dilations so doubt that Miritzzi syndrome Qualifiers: Cholelithiasis location: gallbladder Cholecystitis presence: with cholecystitis Cholecystitis acuity: unspecified acuity Biliary obstruction: without biliary obstruction Qualified Code(s): K80.00 - Calculus of gallbladder with acute cholecystitis without obstruction - Time Spent With Patient Total time spent is greater than 50% in coordination of care (as documented) at patient's floor/unit and/or counseling patient: GI History of Present Illness - Data of Consult Consult date: 06/05/16 Requesting Physician: Kassidy Jones MD - Consult Narrative Reason for consult: AbNormal imaging of the liver and abnormal LFTs History of present illness: Mr. Mae is a 80 year old male imaged because of right-sided abdominal pain. Denies any fever or chills there is has lost about 10 pounds. During hospitalization had imaging done of the abdomen including ultrasound CAT scan and MRI. Imaging are concerning for a a right hepatic lobe lesion along with a large stone in the neck of the gallbladder. Have 10 pound weight loss. No previous history of cancer. Had a lesion removed from his left forearm many years ago which is questionable melanoma. Past Med Surg Social Fam HX - Past Medical History Medical history: atrial fibrillation, cancer (Melanoma left forearm), DVT, diabetes (Type 2), hypertension, pulmonary embolus, other (left vocal cord paralysis, alpha 1 antitrypsein deficiency) Psychiatric history: no psych history - Past Surgical History Surgical History: other (Greenlight photovaporization of the prostate 2013, colonoscopy greater than 10 years ago (normal with Dr. Hunter), Excision of melanoma from left forearm) - Social History Smoking Status: Never smoker Smokeless Tobacco Status: No Alcohol use: none Drug use: none - Family History Mother Living Status: Hx Family Cancer: Yes (breast cancer) Father Living Status: Age at : 52 Cause of : Myocardial infarction Hx Family Cardiac Disorders: Yes Sister Living Status: Cause of : Alzheimer's X 2, Liver disease X 1 Hx Family Endocrine Disorder: Yes (Diabetes Mellitus) Hx Family Neurologic Disorders: Yes (CVA) Son Living Status: Still Living Hx Family Medical Disorders: Yes (alpha 1 antitrysin deficiency) Review of Systems: GI: as per TEJON. Constipation since GENERAL: denies fever, has weight loss of 10 pounds and also feel weak in general EYES: denies yellow discoloration ENT: denies pain with swallowing or difficulty swallowing CARDIO: denies chest pain, palpitations RESP: denies shortness of breath or wheezing : denies change in color of urine NEURO: denies any weakness HEME: Denies any bruising MS: denies joint pain, joint swelling or back pain. DERM: denies rash or itching PSYCH: denies history of: depression or anxiety - Constitutional Vitals: Temp Pulse Resp BP Pulse Ox 98.4 F 118 18 165/76 97 06/05/16 15:15 06/05/16 15:15 06/05/16 10:56 06/05/16 15:15 06/05/16 10:56 - Head Head exam: Present: atraumatic - Eye Eye exam: Present: scleral icterus - Neck Neck exam general surgery: Present: supple - Respiratory Additional comments: Right chest posteriorly decreased breath sounds - GI/Abdominal Additional comments: Right upper quadrant tenderness significant - Extremities Exam Additional comments: trace pedal edema - Skin Skin exam: Present: dry, warm Results - Labs CBC & Chem 7: 06/05/16 11:12 06/05/16 03:46 Labs: Last Result Calcium 8.7 mg/dL (8.6-10.8) 06/05/16 03:46 Entire Visit Hgb 14.7 g/dL (12.9-16.9) 06/05/16 11:12 Hct 44.6 % (37.5-50.1) 06/05/16 11:12 PT 15.9 Seconds (9.4-12.1) H 06/05/16 11:12 Total Bilirubin 3.1 mg/dL (0.2-1.2) H D 06/05/16 03:46 AST 61 Units/L (5-34) H 06/05/16 03:46 ALT 53 Units/L (0-55) 06/05/16 03:46 Lipase 40 Units/L (8-78) 06/04/16 04:45 Carcinoembryonic Ag 3.3 ng/mL (0-5.0) 06/05/16 11:12 - ABG ABG results: PT/INR, D-dimer PT 15.9 Seconds (9.4-12.1) H 06/05/16 11:12 - Impressions Impressions Abdomen MRI 06/04/16 12:57 IMPRESSION: 1. Mild diffuse liver fibrosis mild diffuse liver fibrosis. 2. Confluent lesion in the right hepatic lobe with faint peripheral enhancement. Imaging characteristics are nonspecific. Cystic metastasis may be favored based upon imaging characteristics. Please correlate with any primary site of malignancy. Hepatocellular carcinoma is considered less likely without significant cirrhotic change. Liver abscess on likely given provided history and diffusion appearance. Biopsy recommended. 3. Portacaval lymphadenopathy. 4. Gallstone in the gallbladder neck with sludge noted in the lumen and mild gallbladder mucosal thickening. No inflammation to suggest acute cholecystitis. D/ / Roman Davila MD / Roman Davila MD Interpreting Provider: Roman Davila MD Consult Discharge Plan - Plan Referrals: Jose Juan Colón MD [Primary Care Provider] -
[2016-06-05] MEDS: MetroNIDAZOLE 500 MG/100 ML 500 MG/100 ML BAG IVPB SCH (16:09)
[2016-06-05 18:31] LABS: Activated Partial Thrombo Time 116.1 Seconds (26.0-36.0)
[2016-06-05 18:49] LABS: Heparin anti-factor XA UFH 0.88 IU/mL (0.30-0.70)
[2016-06-06] MEDS: *HR* HYDROmorphone (PF) 1 MG/ML SYRINGE IVP PRN (00:08)
[2016-06-06] MEDS: MetroNIDAZOLE 500 MG/100 ML 500 MG/100 ML BAG IVPB SCH ×3 (00:10→17:44)
[2016-06-06] MEDS: cefOXitin 2,000 MG in D5% in Water (Mini-Bag+) 100 ML IVPB SCH ×2 (00:11→08:41)
[2016-06-06] MEDS: 0.9 % Sodium Chloride 1,000 ML IVC SCH (00:12)
[2016-06-06 00:23] LABS: Basophils % 0.2 %; Hematocrit 41.9 % (37.5-50.1); Hemoglobin 14.1 g/dL (12.9-16.9); Immature Granulocytes % 0.7 % (0-4); Immature Platelets 6.3 % (1.1-6.1); Lymphocytes # 2.1 K/mcL (0.6-4.6); Lymphocytes % 11.4 %; Mean Corpuscular HGB Conc 33.7 g/dL (31.6-35.5); Mean Corpuscular Hemoglobin 33.4 pg (28.0-33.3); Mean Corpuscular Volume 99.3 fL (83.0-100.0); Mean Platelet Volume 11.1 fL (9.4-12.4); Monocytes # 1.6 K/mcL (0.0-1.3); Monocytes % 8.8 %; Neutrophils # 14.5 K/mcL (1.6-8.9); Platelet Count 160 K/mcL (140-400); Red Blood Count 4.22 M/mcL (4.19-5.50); Red Cell Distribution Width 12.8 % (11.5-14.5); Segmented Neutrophils % 78.9 %
[2016-06-06 00:36] LABS: Calcium 8.2 mg/dL (8.6-10.8)
[2016-06-06] MEDS: *HR* OxyCODONE Immed Rel 5 MG TABLET PO PRN (05:02)
[2016-06-06 08:39] LABS: Albumin 2.7 g/dL (3.5-5.0); Albumin/Globulin Ratio 0.7 (1.1-2.2); Bilirubin,Direct 2.6 mg/dL (0.0-0.5); Bilirubin,Indirect 1.8 mg/dL (0.0-1.2); Bilirubin,Total 4.4 mg/dL (0.2-1.2); Globulin 3.9 g/dL (2.4-3.5); Total Protein 6.6 g/dL (6.0-8.3)
[2016-06-06] MEDS: Pantoprazole 40 MG VIAL IVP SCH (08:40)
[2016-06-06] MEDS: amLODIPine 5 MG TABLET PO SCH (08:41)
[2016-06-06] MEDS: Loratadine 10 MG TABLET PO SCH (08:41)
[2016-06-06] MEDS: Fluticasone Propionate Nasal 50 MCG/SPRAY BOTTLE NS SCH (08:42)
[2016-06-06] MEDS: Insulin LISPRO 300 UNITS/3 ML VIAL SQ SCH ×3 (08:49→17:46)
[2016-06-06] MEDS: Heparin 25,000 UNIT/500 ML D5W 25,000 UNIT/500 ML MLS IVC SCH (08:50)
[2016-06-06] MEDS ORDERED: *HR* Morphine 2 MG/ML SYRINGE IVP PRN (09:01)
--- NOTE | 2016-06-06 09:11 | Internal Med Progress Note ---
Date of Encounter: 06/06/16 Time of Encounter: 09:07 - Assessment and plan (1) Hepatic lesion Current Visit: Yes Status: Acute Assessment and plan: Unclear hepatic lesion, less likely hemangioma, less likely liver abscess given his history and no risk factors; GI, Oncology and Surgery on board; plan for possible liver biopsy in am; (2) RUQ pain Current Visit: Yes Status: Acute Assessment and plan: Unclear diagnosis of acute vs chronic cholecystitis. Patient continues to have worsening leukocytosis and elevated bilirubin; will change antibiotics to Zosyn ; send blood cultures. continue IV hydration. Continue pain control with when necessary IV morphine and oral Percocet. Clear liquid diet as tolerated. Continues to have constipation; started Miralax per GI; continue stool softeners and laxatives for ongoing constipation. Surgery on board, will follow-up recommendations. GI consult noted- recommend liver biopsy but no biliary obstruction noted; Patient was noted to be on long-term anticoagulation, which is currently being held for possible cholecystectomy and liver biopsy. Continue IV heparin drip for continuing anticoagulation as patient is noted to be a high risk for stroke due to underlying atrial fibrillation and past history of CVA. (3) Opmgm-[id number] deficiency carrier Current Visit: Yes Status: Chronic (4) Atrial fibrillation Current Visit: Yes Status: Chronic Assessment and plan: Currently rate controlled. Anticoagulation with IV heparin. Qualifiers: Atrial fibrillation type: chronic Qualified Code(s): I48.2 - Chronic atrial fibrillation (5) Diabetes mellitus Current Visit: Yes Status: Chronic Assessment and plan: Accu-Chek blood glucose monitoring with sliding scale insulin. Diabetic diet. Qualifiers: Diabetes mellitus type: type 2 Diabetes mellitus complication status: with unspecified complications Diabetes mellitus assisted insulin use: without assistant terminal manager use Qualified Code(s): E11.8 - Type 2 diabetes mellitus with unspecified complications (6) HTN (hypertension) Current Visit: Yes Status: Chronic Qualifiers: Hypertension type: essential hypertension Qualified Code(s): I10 - Essential (primary) hypertension (7) Chronic kidney disease Current Visit: Yes Status: Chronic Assessment and plan: Serum creatinine and GFR noted to be worsening slightly; continue to monitor. Dose antibiotics and meds per current GFR. Avoid nephrotoxic agents. Qualifiers: Chronic kidney disease stage: stage 3 (moderate) Qualified Code(s): N18.3 - Chronic kidney disease, stage 3 (moderate) - Subjective Interval history: Noted to be very drowsy from pain medications, nodding off during conversation. History obtained from his son at bedside. Reports right upper abdominal pain only on getting out of bed/movement. No vomiting. No bowel movements yet. Tolerates clear liquid diet. - Constitutional Vitals: Temp Pulse Resp BP Pulse Ox 98.3 F 100 18 161/81 92 L 06/06/16 06:50 06/06/16 06:50 06/06/16 06:50 06/06/16 06:50 06/06/16 06:50 General appearance: Present: A&O X 2 (Somnolent but arousable to verbal stimulus ), answers questions appropriately - Respiratory Respiratory exam: Present: CTAB. Absent: accessory muscle use, rales, rhonchi, wheezes - Cardiovascular Cardiovascular exam: Present: irregular rhythm, +S1, +S2. Absent: diastolic murmur, gallop, rubs, systolic murmur - GI/Abdominal GI/Abdominal exam: Present: diminished bowel sounds, firm (nontender currently) , soft, no peritoneal signs. Absent: distended, tenderness Internal Medicine: Result - Labs CBC & Chem 7: 06/06/16 00:16 06/06/16 00:16 Labs: Short CBC 06/05/16 06/06/16 Range/Units 11:12 00:16 WBC 15.9 H 18.3 H (4.3-11.1) K/mcL Hgb 14.7 14.1 (12.9-16.9) g/dL Hct 44.6 41.9 (37.5-50.1) % Plt Count 145 160 (140-400) K/mcL Neutrophils # 14.5 H (1.6-8.9) K/mcL BMP 06/05/16 06/06/16 03:46 00:16 Sodium 135 L 130 L Potassium 4.4 4.0 Chloride 102 97 L Carbon Dioxide 23 22 BUN 16 20 Creatinine 1.28 H 1.51 H Glucose 199 H 215 H Calcium 8.7 8.2 L Liver Function 06/05/16 06/06/16 Range/Units 03:46 00:16 Total Bilirubin 3.1 H D 4.4 H (0.2-1.2) mg/dL Direct Bilirubin 1.7 H D 2.6 H (0.0-0.5) mg/dL AST 61 H 54 H (5-34) Units/L ALT 53 46 (0-55) Units/L Alkaline Phosphatase 164 H 149 H (38-126) Units/L Albumin 3.0 L 2.7 L (3.5-5.0) g/dL - ABG Interpretation ABG results: PT/INR, D-dimer PT 15.9 Seconds (9.4-12.1) H 06/05/16 11:12 - VTE Documentation of Mechanical Device: Intermittent pneumatic compression device Consult Discharge Plan - Plan Referrals: Jose Juan Colón MD [Primary Care Provider] -
--- NOTE | 2016-06-06 10:54 | General Surgery Progress Note ---
Date of Encounter: 06/06/16 Time of Encounter: 10:50 - Assessment and Plan (1) Cholelithiasis Current Visit: Yes Status: Acute Please see below. Qualifiers: Cholelithiasis location: gallbladder Cholecystitis presence: with cholecystitis Cholecystitis acuity: unspecified acuity Biliary obstruction: without biliary obstruction Qualified Code(s): K80.00 - Calculus of gallbladder with acute cholecystitis without obstruction (2) Hepatic lesion Current Visit: Yes Status: Acute Patient continues to have a rising white count 18,000 and a rising bilirubin. Appreciate gastroenterology consultation. It is felt that the abnormal CT scan and MRI finding is more related to a mass were semi-cystic mass of the liver likely metastatic disease versus an abscess. However, due to the fact that there is still the possibility this may be an air recommended (and added) Flagyl as an additional antibiotic and would recommend a CT scan guided biopsy/ drainage of the hepatic lesion to be performed by interventional radiology tomorrow. Discussed my consideration with my colleague Dr. Don when he returns tomorrow morning and will tentatively set this up as an order through the [employer] system so that it can be discussed with the interventional radiologist tomorrow. I will also make him nothing by mouth after midnight just in case. Discussed with the patient and patient's family number and agree with the above plan. Subjective Patient reports: no new complaints (Admits to continued RUQ pain. No nausea or vomiting.) Objective - General physical appearance well developed, well nourished - Abdomen Abdomen: Present: bowel sounds present, soft, tender (RuQ pain) - Labs 06/06/16 00:16 06/06/16 00:16 - VTE Documentation of Mechanical Device: Intermittent pneumatic compression device Consult Discharge Plan - Plan Referrals: Jose Juan Colón MD [Primary Care Provider] -
[2016-06-06] MEDS ORDERED: *HR* Metoprolol 5 MG/5 ML VIAL IVP PRN (11:15)
[2016-06-06] MEDS ORDERED: Neosporin OINT 1 APPL PACKET TP ONE (12:05)
[2016-06-06] MEDS ORDERED: Saline Nasal Spray 44 ML BOTTLE NS PRN (13:36)
[2016-06-06 14:34] VITALS: BP 149/75
[2016-06-06] MEDS ORDERED: Piperacillin/Tazobactam 3.375 GM in D5% in Water (Mini-Bag+) 100 ML IVPB SCH (16:00)
--- NOTE | 2016-06-06 17:04 | Discharge Summary ---
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 (4) Atrial fibrillation Priority: Secondary Status: Chronic Qualifiers: Atrial fibrillation type: chronic Qualified Code(s): I48.2 - Chronic atrial fibrillation (5) Diabetes mellitus Priority: Secondary Status: Chronic Qualifiers: Diabetes mellitus type: type 2 Diabetes mellitus complication status: with unspecified complications Diabetes mellitus long term care social worker insulin use: without long term care social worker use Qualified Code(s): E11.8 - Type 2 diabetes mellitus with unspecified complications (6) HTN (hypertension) Priority: Secondary Status: Chronic Qualifiers: Hypertension type: essential hypertension Qualified Code(s): I10 - Essential (primary) hypertension (7) Chronic kidney disease Priority: Secondary Status: Chronic Qualifiers: Chronic kidney disease stage: stage 3 (moderate) Qualified Code(s): N18.3 - Chronic kidney disease, stage 3 (moderate) - Discharge Medications Home Medications: Rivaroxaban [Xarelto] 20 mg PO DAILY #30 tablet 09/24/15 [Rx] Atenolol [Tenormin] 50 mg PO DAILY 06/04/16 [History] Fluticasone Propionate Nasal [Flonase] 50 mcg NS DAILY 06/04/16 [History] Loratadine [Allergy Relief] 10 mg PO DAILY 06/04/16 [History] Losartan Potassium [Cozaar] 50 mg PO DAILY 06/04/16 [History] Metformin [Glucophage] 750 mg PO BID 06/04/16 [History] Multivit-Min/FA/Lycopen/Lutein [Centrum Silver Men Tablet] 1 tab PO DAILY [History] Allergies/Adverse Reactions: Allergies dabigatran etexilate [From Pradaxa] Adverse Reaction (Unknown, Verified 07:21) Migraine fesoterodine [From Toviaz] Adverse Reaction (Unknown, Verified 06/04/16 07:21) See Comments URINARY RETENTION lisinopril Adverse Reaction (Unknown, Verified 06/04/16 07:21) See Comments URINARY RETENTION Date of admission: 06/06/16 09:41 Primary care physician: Jose Juan Colón MD Consults: 06/07/16 07:30 Consult to Interventional Radiology [CONS] Routine Consulting Provider: Radiology Interventional Cols Reason for Consult: CT scan guided biopsy/drain of hepatic mass/lesion Call Completed: No Discharging clinician: Kassidy Jones Anticipated date of discharge: 06/06/16 - Patient Status Disposition: Transfer Critical Access Hosp Condition: Fair Functional capacity at discharge: independent ambulation Overall status at discharge: patient is not back to baseline - Discharge Instructions Follow Up With: Jose Juan Colón MD [Primary Care Provider] - - Diet and Activity Diet: diabetic diet, low fat, low cholesterol, low salt diet Hospital course: Mr. Mae is a 80 year old male with the above medical problems was admitted with acute onset of right upper abdominal pain. CT abdomen/pelvis done in the emergency room showed multiple hepatic lesions, concerning for malignancy along with necrotic portacaval lymph nodes. He was also noted to have slight elevation in bilirubin and liver enzymes. He was started on IV hydration and pain control with narcotic analgesics. Surgery and oncology were consulted and further imaging studies were done. Gallbladder ultrasound was suggestive of acute cholecystitis. MRI of abdomen was done which showed gallstone in the gallbladder neck with mild gallbladder mucosal thickening along with the possible cystic liver lesion and portacaval lymphadenopathy. Patient would likely require liver biopsy (for possible abscess vs mass) with or without cholecystectomy. GI was consulted due to worsening bilirubin and a grade with liver biopsy. Patient has been started on Mefoxin initially and as his leukocytosis began to get worse, antibiotics were changed to IV Zosyn and Flagyl. From day 2, patient was noted to have worsening leukocytosis and total bilirubin and patient's family requested for transfer to higher level of care. Case has been discussed with surgery at [facility], who has kindly accepted this patient's care and patient is medically stable for this transfer. - Time Spent with Patient Total time spent providing and/or coordinating discharge services: Greater than 30 minutes (50 min) - Constitutional Vitals: Temp Pulse Resp BP Pulse Ox 98.1 F 100 14 149/75 93 L 06/06/16 14:33 06/06/16 14:33 06/06/16 14:33 06/06/16 14:33 06/06/16 14:33 General appearance: Present: A&O X 3, answers questions appropriately - Respiratory Respiratory exam: Present: CTAB. Absent: accessory muscle use, rales, rhonchi, wheezes - GI/Abdominal GI/Abdominal exam: Present: normal bowel sounds, soft (nontender), no peritoneal signs. Absent: distended, tenderness - VTE Documentation of Mechanical Device: Intermittent pneumatic compression device
--- NOTE | 2016-06-08 14:04 | Oncology Inp Progress Note ---
Date of Encounter: 06/06/16 Time of Encounter: 14:02 (1) Hepatic lesion Status: Acute Assessment and plan: Contiguous lobulated lesion in the dome of the liver with fluid consistency. I reviewed the CT chest dated 06/11/2008 he did not have that lesion at that time. MRI of the abdomen favored more of cystic metastasis than abscess Also necrotic lymph nodes in the upper abdomen He was transferred to [facility] under care of Dr. Lees hepatobiliary surgeon. CEA normal at 3.3. CA 19-9, alpha-fetoprotein and chromogranin pending Biopsy was done at [facility] in the liver. He will be also getting ERCP for progressive jaundice (2) RUQ pain Status: Acute Assessment and plan: Right upper quadrant ultrasound 06/04/2016 showed gallstones with sludge in the gallbladder with markedly thickened wall . At this time it is not sure if the gallbladder process in the obstructive jaundice is separate from the liver mass represents one entity (3) Atrial fibrillation Status: Chronic Assessment and plan: on IV heparin the hospital and off Xarelto Qualifiers: Atrial fibrillation type: chronic Qualified Code(s): I48.2 - Chronic atrial fibrillation Oncology: Subj Interval history: Mild confusion most likely from pain medication and he is off pain medication now abdominal pain manageable Progressive jaundice - Constitutional Exam: GENERAL: Alert and oriented, well appearing. Mental Status: Affect appropriate for circumstances HEENT: Sclerae anicteric. No mucositis or thrush. No other oral or pharyngeal lesions or erythema. Skin: No rashes or petechiae. No evidence of skin malignancy Lymph nodes: No cervical, supraclavicular, axillary, or inguinal adenopathy. Lungs: Clear to auscultation and percussion bilaterally. Cardiovascular: Regular rate and rhythm. No gallops, murmurs, or rubs. Abdomen: Soft, right upper quadrant tenderness has improved . No distinct mass Extremities: No edema. No calf swelling or tenderness. No joint deformity. Neurologic: Alert, cranial nerves II-XII intact; normal gait; no focal weakness or sensory abnormalities. Oncology: Obj Data - Labs CBC & Chem 7: 06/06/16 00:16 06/06/16 00:16 - ABG Interpretation ABG results: PT/INR, D-dimer PT 15.9 Seconds (9.4-12.1) H 06/05/16 11:12 Consult Discharge Plan - Plan
--- NOTE | 2016-06-08 17:39 | Electrocardiograph Report ---
[address] [place] [address] Test Date: 2016-06-06 Pat Name: Augustus Mae Department: 115 Room: 3A25 Gender: M Active Directory Engineer: : [id number] Requested By: Ju Jones Order Number: [id number] Reading MD: Paris Ellis Measurements Intervals [place] Rate: 122 P: NC: 0 QRS: -12 QRSD: 94 T: 33 QT: 303 QTc: 375 Interpretive Statements ATRIAL FIBRILLATION WITH RAPID VENTRICULAR RESPONSE INFERIOR MYOCARDIAL INFARCTION, PROBABLY OLD Electronically Signed On 06-08-2016 17:37:07 EST by Paris Ellis
[2016-06-09 08:09] LABS: AFP Tumor Marker Non-Pregnant 2 ng/mL (0-9)
[2016-06-09 08:10] LABS: Cancer Antigen-GI (CA 19-9) 896 U/mL (0-37)
== END 2016-06-06 19:18 | disposition critical access hospital (66) | DRG 446 ==
LOC: EMEROO 03:36 → 3ANU 03:36
PROVIDERS: ADMIT Internal Medicine; ATTEND Internal Medicine

== ENCOUNTER 2016-06-24 10:37 | Observation (INO) ==
--- NOTE | 2016-06-24 09:37 | History & Physical Report ---
Date of Encounter: 06/24/16 Time of Encounter: 09:37 24 Hour HP Update - Instructions Instructions: If the History and Physical is less than 30 days old and was completed prior to A.M. admission and or procedure and has NOT been updated on calendar day of procedure please complete this update prior to performing procedure. - Update Patient reports changes in Medical Condition: No Changes in assessment/condition: No Changes in Medication: No Preop tests/diagnostics Reviewed: Yes Surgery Remains Indicated: Yes Consent for Planned Operative Procedure(s) Verified: Yes
[2016-06-24 11:52] LABS: INR 2.3; Prothrombin Time 25.6 Seconds (9.4-12.1)
[2016-06-24 11:54] LABS: Activated Partial Thrombo Time 39.8 Seconds (26.0-36.0)
[2016-06-24] MEDS ORDERED: Naloxone 0.4 MG/ML INJ IVP PRN (15:36)
[2016-06-24] MEDS ORDERED: Furosemide 40 MG/4 ML VIAL IVP ONE (15:41)
--- NOTE | 2016-06-24 15:55 | Internal Med History&Physical ---
<Brooke Valencia - Last Filed: 06/25/16 00:04> Date of Encounter: 06/24/16 Time of Encounter: 15:53 Assessment and Plan (1) Elevated INR Current visit: Yes Status: Acute Patient in need of paracentesis in IR, but INR elevated to 2.4. 2 units of FFP at midnight 2 units of FFP at 4am Recheck PT/INR/PTT after 4 units and plan for Paracentesis and port placement in IR in the morning. (2) Type 2 diabetes mellitus Current visit: Yes Status: Acute Check blood sugars ACHS and Q6 hours when NPO Sliding scale insulin ACHS and Q6 hours when NPO hypoglycemic protocol Qualifiers: Diabetes mellitus complication status: without complication Diabetes mellitus snf insulin use: with joint terminal attack controller use Qualified Code(s): E11.9 - Type 2 diabetes mellitus without complications; Z79.4 - terminal manager (current) use of insulin (3) Ascites Current visit: No Status: Acute Patient with recent diagnosis of cholangiocarcinoma. Patient with 10 lb weight gain in last 3 days. Abdomen is firm, distended and tense. Patient reporting abdominal pain and shortness of breath. Additionally, patient has significant BUE and BLE edema. Paracentesis planned in IR tomorrow. 40mg IVP lasix once. 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 He received palliative radiation therapy and was discharged to [facility] 3 days ago. On exam he is Jaundiced, with ascites and anasarca. Patient wishes to be DNR-CC. He has a planned paracentesis tomorrow for relief of ascites, and port placement. Pain control with PRN tramadol and oxycodone for severe pain. (5) Atrial fibrillation Current visit: No Status: Chronic Patient on Atenolol for rate control and Xarelto for anti-coagulation. Continue Atenolol. Hold Xarelto for planned procedure tomorrow. Qualifiers: Atrial fibrillation type: chronic Qualified Code(s): I48.2 - Chronic atrial fibrillation (6) DVT prophylaxis Current visit: Yes Status: Acute ambulate with assistance anti-embolic stockings patient on Xarelto, being held for procedure planned tomorrow. INR is elevated to 2.4. Internal Medicine - H&P: HPI Chief complaint: elevated INR and need for paracentesis Admitted From: Direct Admit Plans for Post Hospital Care: Transfer Snf Facility History of present illness: Mr. Mae is a 80 year old male with hypertension, atrial fibrillation, diabetes, history of DVT and PE, on Xarelto, recent new diagnosis of cholangiocarcinoma presented to IR today for paracentesis of ascites however his INR was noted to be 2.4. He was direct admitted in order to receive FFP overnight and recheck PT/INR in the morning and proceed with paracentesis. 3 weeks ago patient was seen here for right upper quadrant pain and was found to have a liver mass, he was transferred to [facility] for further evaluation, liver biopsy, and possible surgical intervention. His daughter reports that they biopsy revealed cholangiocarcinoma, and he was determined to be inoperable. He did receive palliative radiation while at [facility], and was released to [facility] 3 days ago. She reports that while he was in [facility] he was receiving Lasix, but she does not believe he has been getting the Lasix at [facility]. Patient has gained 10 lbs in the last 3 days, and has swelling of his abdomen, arms and legs. He reports shortness of breath, poor appetite and abdominal pain. On exam, patient is jaundiced, has tense ascites, abdomen is tender to palpation, has BUE and BLE edema. Heart has irregular rhythm but normal rate, lungs are clear to auscultation. Past Med Surg Social Fam HX - Past Medical History Medical history: atrial fibrillation, cancer (cholangiocarcinoma), DVT, diabetes , hypertension, pulmonary embolus, other Psychiatric history: no psych history - Past Surgical History Surgical History: other (prostate surgery for BPH, liver biopsy) - Social History Smoking Status: Former smoker Packs per day: quit 50years ago Smokeless Tobacco Status: No Alcohol use: occasionally Drug use: none - Family History Mother Living Status: Hx Family Cancer: Yes (breast cancer) Father Living Status: Cause of : DE Hx Family Cardiac Disorders: Yes Sister Name: Debra Living Status: Cause of : cirrhosis Hx Family Endocrine Disorder: Yes (Diabetes Mellitus) Hx Family Neurologic Disorders: Yes (CVA) Son Living Status: Still Living Internal Medicine - H&P: Meds Rivaroxaban [Xarelto] 20 mg PO DAILY #30 tablet 09/24/15 [Rx] Atenolol [Tenormin] 50 mg PO DAILY 06/04/16 [History] FentaNYL PATCH [Duragesic] 12 mcg TD Q72H #10 patch.td72 06/24/16 [Rx] Furosemide [Lasix] 20 mg PO DAILY #30 tablet 06/24/16 [Rx] Spironolactone [Aldactone] 50 mg PO DAILY #30 tablet 06/24/16 [Rx] Amlodipine [Norvasc] 5 mg PO DAILY 06/25/16 [History] Fluticasone Propionate Nasal [Flonase] 50 mcg NS DAILY 06/25/16 [History] Insulin LISPRO [Humalog] 0 - 10 unit SQ QID 06/25/16 [History] Insulin NPH, HUMAN [HumuLIN N] 10 unit SQ HS 06/25/16 [History] Loratadine [Allergy Relief] 10 mg PO DAILY 06/25/16 [History] Ondansetron HCl [Zofran] 4 mg PO Q6H PRN 06/25/16 [History] Pantoprazole Sodium [Protonix] 40 mg PO DAILY 06/25/16 [History] Tramadol HCl [Ultram] 50 mg PO Q4H PRN 06/25/16 [History] Allergies dabigatran etexilate [From Pradaxa] Adverse Reaction (Unknown, Verified 07:21) Migraine fesoterodine [From Toviaz] Adverse Reaction (Unknown, Verified 06/04/16 07:21) See Comments URINARY RETENTION lisinopril Adverse Reaction (Unknown, Verified 06/04/16 07:21) See Comments URINARY RETENTION All Systems PM: A 10-system review of systems was performed and is negative for pertinent findings except as documented above in the HPI. - Constitutional Constitutional: anorexia, weight gain, no chills, no fever(s), no night sweats - EENT Eyes: no change in vision, no discharge, no pain, no photophobia Ears: no ear discharge, no ear pain, no tinnitus Nose, mouth and throat: no dysphagia, no nasal discharge, no neck pain, no sore throat - Cardiovascular Cardiovascular ROS IM: dyspnea, dyspnea on exertion, edema, no chest pain, no diaphoresis, no lightheadedness, no palpitations, no syncope - Respiratory Respiratory: cough (dry cough), dyspnea, dyspnea on exertion, no wheezing, no excessive phlegm production - Gastrointestinal Gastrointestinal: abdominal pain, no diarrhea, no hematemesis, no hematochezia, no melena, no nausea, no vomiting - Musculoskeletal Musculoskeletal ROS IM: no numbness, no tingling - Integumentary Integumentary IM: no rash, no unusual bruising - Neurological Neurological ROS: no confusion, no convulsions, no focal weakness, no numbness, no tingling, no tremor(s) - Hematologic/Lymphatic Hematologic/Lymphatic: easy bruising - Constitutional Vitals: Temp Pulse Resp BP Pulse Ox 97.5 F L 107 16 113/68 95 06/24/16 15:16 06/24/16 15:16 06/24/16 15:16 06/24/16 15:16 06/24/16 15:16 General appearance: Present: A&O X 3, no acute distress - Head Head exam: Present: atraumatic, normocephalic - Eye Eye exam: Present: PERRL, scleral icterus, conjuntiva pink Pupils: Present: PERRL - Neck Neck exam general surgery: Present: supple, trachea midline. Absent: lymphadenopathy - Respiratory Respiratory exam: Present: CTAB. Absent: accessory muscle use, rales, rhonchi, wheezes - Cardiovascular Cardiovascular exam: Present: irregular rhythm, +S1, +S2. Absent: diastolic murmur, gallop, rubs, systolic murmur - GI/Abdominal GI/Abdominal exam: Present: distended, firm, normal bowel sounds, tenderness, no peritoneal signs - Extremities Exam Extremities exam: Present: pedal edema, warm, radial pulses palpable and symetrical. Absent: calf tenderness, cyanotic Additional comments: significant BUE and BUE edema - Neurological Exam Neurological exam: Present: CN II-XII intact, oriented X3, no focal deficits. Absent: facial droop, speech deficit - Skin Skin exam: Present: dry. Absent: normal color Additional comments: Jaundiced Internal Med - H&P Results - Labs Labs: All Lab Results (24 Hours) 06/24/16 Range/Units 11:25 PT 25.6 H (9.4-12.1) Seconds INR 2.3 APTT 39.8 H (26.0-36.0) Seconds - Impressions ITS Impressions Paracentesis Ultrasound 06/24/16 00:00 IMPRESSION: Mild amount of ascites D/ / Kirk Riley MD / Kirk Riley MD Interpreting Provider: Kirk Riley MD <Jayme Toure - Last Filed: 06/27/16 13:35> Internal Medicine - H&P: HPI History of present illness: Mr. Mae is a 80 year old male All Systems PM: A 10-system review of systems was performed and is negative for pertinent findings except as documented above in the HPI. - Constitutional Vitals: Temp Pulse Resp BP Pulse Ox 97.4 F L 87 20 96/56 93 L 06/27/16 11:12 06/27/16 11:12 06/27/16 11:12 06/27/16 11:12 06/27/16 11:12 Internal Med - H&P Results - Labs CBC & Chem 7: 06/27/16 03:50 06/27/16 04:37 Labs: Short CBC 06/26/16 06/27/16 Range/Units 16:42 03:50 WBC 10.8 11.1 (4.3-11.1) K/mcL Hgb 11.2 L 10.8 L (12.9-16.9) g/dL Hct 31.9 L 31.3 L (37.5-50.1) % Plt Count 174 141 (140-400) K/mcL Neutrophils # 9.2 H 9.4 H (1.6-8.9) K/mcL BMP 06/26/16 06/27/16 16:42 04:37 Sodium 136 136 Potassium 4.9 H 5.5 H Chloride 101 102 Carbon Dioxide 20 20 BUN 101 H D 109 H Creatinine 3.71 H 4.24 H Glucose 163 H 163 H Calcium 7.8 L 7.8 L Liver Function 06/27/16 Range/Units 04:37 Total Bilirubin 21.9 H (0.2-1.2) mg/dL Direct Bilirubin 20.7 H (0.0-0.5) mg/dL AST 73 H (5-34) Units/L ALT 38 (0-55) Units/L Alkaline Phosphatase 592 H (38-126) Units/L Albumin 2.0 L D (3.5-5.0) g/dL - Impressions ITS Impressions Paracentesis Ultrasound 06/24/16 00:00 IMPRESSION: Mild amount of ascites D/ / Kirk Riley MD / Kirk Riley MD Interpreting Provider: Kirk Riley MD Guidance Needle Placement Ultrasound 06/25/16 00:00 IMPRESSION: Successful ultrasound and fluoroscopy guided Port-A-Cath placement D/ / Kirk Riley MD / Kirk Riley MD Interpreting Provider: Kirk Riley MD Insertion Tunneled Catheter 06/25/16 09:32 IMPRESSION: Successful ultrasound and fluoroscopy guided Port-A-Cath placement D/ / Kirk Riley MD / Kirk Riley MD Interpreting Provider: Kirk Riley MD Paracentesis Ultrasound 06/25/16 09:32 IMPRESSION: Successful ultrasound guided paracentesis. D/ / Kirk Riley MD / Kirk Riley MD Interpreting Provider: Kirk Riley MD Chest X-Ray 06/26/16 17:04 IMPRESSION: Moderate to large right pleural effusion and small left pleural effusion have increased since the CT on 06/09/2016. D/ / Eric Roe MD / Eric Roe MD Interpreting Provider: Eric Roe MD - Attending Attestation I examined this patient and my medical decision-making was reviewed with the Advanced Practice Nurse. I agree with the documented findings, disposition and treatment plan as described except to the extent set forth below. Patient presented for paracentesis. Reports 10lb weight gain in 1 wk, leg swelling, SOB. On exam he appears jaundiced, has ascites and LE pitting edema. INR 2.4. Will give FFP, reverse INR, plan for paracentesis and port placement.
[2016-06-24] MEDS ORDERED: D5% in Water 1,000 ML IV PRN (16:11)
[2016-06-24] MEDS ORDERED: Dextrose Gel 15 GM PO PRN ×2 (16:11)
[2016-06-24] MEDS ORDERED: *HR* Dextrose 50 % in Water (Syg) 50 ML SYRINGE IVP PRN (16:11)
[2016-06-24] MEDS ORDERED: Albumin 25% 25gram/100mL 25 GM/100 ML IV.SOLN IVPB ONE ×2 (16:34→16:35)
[2016-06-24] MEDS: Insulin LISPRO 300 UNITS/3 ML VIAL SQ SCH ×2 (17:58→20:59)
[2016-06-24] MEDS: traMADol 50 MG TABLET PO PRN ×2 (18:04→23:46)
[2016-06-24] MEDS ORDERED: 0.9 % Sodium Chloride 250 ML ONE (23:39)
[2016-06-25] MEDS ORDERED: 0.9 % Sodium Chloride 250 ML ONE (03:34)
[2016-06-25] MEDS: Furosemide 40 MG TABLET PO SCH (08:26)
[2016-06-25] MEDS: *HR* OxyCODONE Immed Rel 5 MG TABLET PO PRN ×2 (08:34→20:36)
[2016-06-25] MEDS: Insulin LISPRO 300 UNITS/3 ML VIAL SQ SCH ×4 (08:35→21:07)
[2016-06-25] MEDS ORDERED: *HR* FentaNYL (PF) 100 MCG/2 ML VIAL IV PRN (09:00)
[2016-06-25] MEDS ORDERED: *HR* Midazolam HCl 2 MG/2 ML VIAL IV PRN (09:00)
[2016-06-25] MEDS ORDERED: ceFAZolin 1,000 MG in D5% in Water (Mini-Bag+) 100 ML IVPB ONE (09:00)
--- NOTE | 2016-06-25 09:00 | Pre-Sedation Evaluation ---
Pre-sedation evaluation - Pre-sedation checklist Recent Vitals: Last Vital Signs Temp 97.8 F 06/25/16 08:06 Pulse 108 06/25/16 08:06 Resp 17 06/25/16 08:06 BP 101/65 06/25/16 08:06 Pulse Ox 90 L 06/25/16 08:06 Airway Assessment: Patient can open mouth completely, TMJ function normal, Micrognathia (under-bite, receding chin) absent, Neck with adequate range of motion Dentition: No loose teeth or bridges Possible difficult airway: No ASA Classification *see protocol: CLASS III-Severe systemic disease Plan of Care: Pt appropriate candidate for procedure/moderate/conscious sedation , Risks/benefits of procedure/sedation discussed w/ patient/family
[2016-06-25 09:03] LABS: INR 1.7; Prothrombin Time 18.1 Seconds (9.4-12.1)
[2016-06-25 09:05] LABS: Activated Partial Thrombo Time 34.9 Seconds (26.0-36.0)
[2016-06-25 09:09] LABS: Basophils % 0.4 %; Eosinophils # 0.1 K/mcL (0.0-0.6); Eosinophils % 1.3 %; Hematocrit 31.6 % (37.5-50.1); Hemoglobin 11.2 g/dL (12.9-16.9); Immature Granulocytes % 1.6 % (0-4); Lymphocytes # 0.4 K/mcL (0.6-4.6); Lymphocytes % 3.9 %; Mean Corpuscular HGB Conc 35.4 g/dL (31.6-35.5); Mean Corpuscular Hemoglobin 33.2 pg (28.0-33.3); Mean Corpuscular Volume 93.8 fL (83.0-100.0); Mean Platelet Volume 11.8 fL (9.4-12.4); Monocytes # 0.6 K/mcL (0.0-1.3); Monocytes % 6.7 %; Neutrophils # 8.2 K/mcL (1.6-8.9); Platelet Count 189 K/mcL (140-400); Red Blood Count 3.37 M/mcL (4.19-5.50); Red Cell Distribution Width 19.5 % (11.5-14.5); Segmented Neutrophils % 86.1 %
[2016-06-25 09:11] LABS: Calcium 7.9 mg/dL (8.6-10.8); Potassium 4.7 mEq/L (3.5-4.5)
[2016-06-25] MEDS ORDERED: Heparin 1,000 UNITS/500 mL NS 500 ML ONE (09:56)
[2016-06-25] MEDS ORDERED: 0.9 % Sodium Chloride 500 ML ONE (10:00)
--- NOTE | 2016-06-25 12:07 | Internal Med Progress Note ---
Date of Encounter: 06/25/16 Time of Encounter: 12:05 - Assessment and plan (1) Ascites Current Visit: No Status: Acute Assessment and plan: Patient with recent diagnosis of cholangiocarcinoma. Patient with 10 lb weight gain in last 3 days. Abdomen is firm, distended and tense. planned for IR guided therapeutic paracentesis today. INR is stbale for the procedure.. 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. He received palliative radiation therapy and was discharged to [facility] 3 days ago. Pain control with PRN tramadol and oxycodone for severe pain. will consult palliative care. (3) Elevated INR Current Visit: Yes Status: Acute Assessment and plan: On AC for atrial fib coumadin was held for the paracentesis and IR gugided port placement today. will need t o be restarted once the procedure is done. hb 11.2 today (4) Type 2 diabetes mellitus Current Visit: Yes Status: Acute Qualifiers: Diabetes mellitus complication status: without complication Diabetes mellitus shelter insulin use: with flooring salesperson use Qualified Code(s): E11.9 - Type 2 diabetes mellitus without complications; Z79.4 - FDC (current) use of insulin (5) Atrial fibrillation Current Visit: No Status: Chronic Assessment and plan: raet controlled continue home meds restart AC once procedure is done.. Qualifiers: Atrial fibrillation type: chronic Qualified Code(s): I48.2 - Chronic atrial fibrillation - Subjective Interval history: seen at the bedside, denies any complaints planned for port assessment and paracentesis with IR today. Patient may have to stay here for the weekend given autorization issues/ - Constitutional Vitals: Temp Pulse Resp BP Pulse Ox 97.6 F 103 10 105/65 97 06/25/16 11:05 06/25/16 11:13 06/25/16 11:13 06/25/16 11:13 06/25/16 11:13 General appearance: Present: A&O X 3, no acute distress Exam: - Head Head exam: Present: atraumatic, normocephalic - Eye Eye exam: Present: PERRL, scleral icterus, conjuntiva pink Pupils: Present: PERRL - Neck Neck exam general surgery: Present: supple, trachea midline. Absent: lymphadenopathy - Respiratory Respiratory exam: Present: CTAB. Absent: accessory muscle use, rales, rhonchi, wheezes - Cardiovascular Cardiovascular exam: Present: irregular rhythm, +S1, +S2. Absent: diastolic murmur, gallop, rubs, systolic murmur - GI/Abdominal GI/Abdominal exam: Present: distended, firm, normal bowel sounds, tenderness, no peritoneal signs - Extremities Exam Extremities exam: Present: pedal edema, warm, radial pulses palpable and symetrical. Absent: calf tenderness, cyanotic Additional comments: significant BUE and BUE edema - Neurological Exam Neurological exam: Present: CN II-XII intact, oriented X3, no focal deficits. Absent: facial droop, speech deficit - Skin Skin exam: Present: dry. Absent: normal color Internal Medicine: Result - Labs CBC & Chem 7: 06/25/16 08:25 06/25/16 08:25 Labs: Short CBC 06/25/16 Range/Units 08:25 WBC 9.5 (4.3-11.1) K/mcL Hgb 11.2 L (12.9-16.9) g/dL Hct 31.6 L (37.5-50.1) % Plt Count 189 (140-400) K/mcL Neutrophils # 8.2 (1.6-8.9) K/mcL BMP 06/25/16 08:25 Sodium 137 Potassium 4.7 H Chloride 103 Carbon Dioxide 20 BUN 79 H Creatinine 2.87 H Glucose 154 H Calcium 7.9 L - ABG Interpretation ABG results: PT/INR, D-dimer PT 18.1 Seconds (9.4-12.1) H 06/25/16 08:23 - Impressions Impressions Paracentesis Ultrasound 06/24/16 00:00 IMPRESSION: Mild amount of ascites D/ / Kirk Riley MD / Kirk Riley MD Interpreting Provider: Kirk Riley MD - VTE Documentation of Mechanical Device: Graduated compression elastic hosiery Consult Discharge Plan - Plan Referrals: Jose Juan Colón MD [Primary Care Provider] -
[2016-06-25] MEDS: *HR* Rivaroxaban 15 MG TABLET PO SCH (17:22)
[2016-06-26] MEDS: Furosemide 40 MG TABLET PO SCH (08:13)
[2016-06-26] MEDS: Insulin LISPRO 300 UNITS/3 ML VIAL SQ SCH ×4 (08:15→21:23)
[2016-06-26] MEDS: traMADol 50 MG TABLET PO PRN (11:06)
[2016-06-26] MEDS ORDERED: Albumin 25% 25gram/100mL 25 GM/100 ML IV.SOLN IVPB ONE (11:22)
--- NOTE | 2016-06-26 13:07 | Oncology Inp Progress Note ---
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 Still Jaundiced. Ascites and LE edema 3+. Status post-paracentesis. Also port placement. Albumin 25% 100 ml q 12 hours x 3 doses with Lasix Hypotention. Overall his condition declined during weekend. Direct bilirubin increased to 20. Acute kidney injury and creatinine increased to 6. Nephrology involved. Overall prognosis poor Patient was transferred to hospice care which is reasonable (2) Acute kidney injury Current Visit: No Status: Acute Assessment and plan: Creatinine 2.8. Recent baseline around 1.7. His renal function got worse and creatinine went up to 6.6. His urine output is reduced to less than 250 MD Oncology: Subj Interval history: Had port place right IJ by IR. Also 2L of straw color ascites drained. Low albumin of 1.8 with interstitial edema. Jaundice. Appetite better - Constitutional Vitals: Vital Signs Temp Pulse Resp BP Pulse Ox 06/26/16 11:10 97.6 F 98 18 93/56 92 L 06/26/16 07:37 98.2 F 97 18 137/69 92 L 06/26/16 03:43 97.7 F 100 16 113/65 92 L 06/25/16 23:43 97.6 F 100 18 119/71 94 L 06/25/16 19:32 97.5 F L 89 18 148/68 93 L 06/25/16 15:41 98.5 F 101 16 113/68 95 Intake and Output 06/25/16 06/26/16 06/26/16 23:59 07:59 15:59 Intake Total 800 / 800 200 / 200 200 / 200 Output Total 800 / 800 150 / 150 200 / 200 Balance 0 / 0 50 / 50 0 / 0 Intake: Oral 800 / 800 200 / 200 200 / 200 Output: Urine 800 / 800 150 / 150 0 / 0 Catheter 200 / 200 Other: Meal Dinner Breakfast Percent of Meal Consumed 100% 45% Stool Size Small Smear Stool Consistency formed liquid formed Stool Characteristics Mucoid Stool Color Brown Brown # Bowel Movements 1 Weight 106.9 kg Blood Glucose* 158 123 113 Patient Weight 06/26/16 23:59 Weight 106.9 kg Exam: GENERAL: Alert and oriented, jaundice. Mental Status: Affect appropriate for circumstances HEENT: Sclerae anicteric. No mucositis or thrush. No other oral or pharyngeal lesions or erythema. Skin: No rashes or petechiae. No evidence of skin malignancy Lymph nodes: No cervical, supraclavicular, axillary, or inguinal adenopathy. Lungs: Clear to auscultation and percussion bilaterally. Cardiovascular: Regular rate and rhythm. No gallops, murmurs, or rubs. Abdomen: Soft, mild tenderness and distention from ascites. Extremities: No edema. No calf swelling or tenderness. No joint deformity. Neurologic: Alert, cranial nerves II-XII intact; normal gait; no focal weakness or sensory abnormalities. Oncology: Obj Data - Labs CBC & Chem 7: 06/28/16 09:52 06/28/16 09:52 Labs: Laboratory Results - last 24 hr 06/25/16 06/25/16 06/26/16 11:58 16:13 07:39 POC Glucose 138 H 147 H 123 H 06/26/16 11:14 POC Glucose 113 H - Impressions Impressions Guidance Needle Placement Ultrasound 06/25/16 00:00 IMPRESSION: Successful ultrasound and fluoroscopy guided Port-A-Cath placement D/ / Kirk Riley MD / Kirk Riley MD Interpreting Provider: Kirk Riley MD Insertion Tunneled Catheter 06/25/16 09:32 IMPRESSION: Successful ultrasound and fluoroscopy guided Port-A-Cath placement D/ / Kirk Riley MD / Kirk Riley MD Interpreting Provider: Kirk Riley MD Paracentesis Ultrasound 06/25/16 09:32 IMPRESSION: Successful ultrasound guided paracentesis. D/ / Kirk Riley MD / Kirk Riley MD Interpreting Provider: Kirk Riley MD - ABG Interpretation ABG results: PT/INR, D-dimer PT 18.1 Seconds (9.4-12.1) H 06/25/16 08:23 Consult Discharge Plan - Plan Referrals: Jose Juan Colón MD [Primary Care Provider] -
[2016-06-26] MEDS ORDERED: *HR* Morphine 2 MG/ML SYRINGE IVP ONE (13:36)
--- NOTE | 2016-06-26 13:42 | Internal Med Progress Note ---
Date of Encounter: 06/26/16 Time of Encounter: 13:39 - Assessment and plan (1) Ascites Current Visit: No Status: Acute Assessment and plan: Patient with recent diagnosis of cholangiocarcinoma. Patient with 10 lb weight gain in last 3 days. Abdomen is firm, distended. s/p IR guided therapeutic paracentesis yesterday. will continue IV albumin and lasix for now as recommended by oncology. Qualifiers: Ascites type: malignant Qualified Code(s): R18.0 - Malignant ascites (2) Cholangiocarcinoma Current Visit: No Status: Acute Assessment and plan: Patient recently diagnosed with cholangiocarcinoma via liver biopsy at [facility]. He received palliative radiation therapy and was discharged to [facility] 3 days ago. Pain control with PRN tramadol and oxycodone for severe pain. c/o chest pain this morning after eating. will add morphine for pain, (3) Elevated INR Current Visit: Yes Status: Acute Assessment and plan: On AC for atrial fib coumadin was held for the paracentesis and IR gugided port placement . was restarted at 15 mg due to renal dysfxn, given worsenning renal fxn , hector hold for today. 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 c/o mild chest pain after eating. EKG shows atrial fib with no ischemic changes continue home meds, will give one dose of morphine as he says he cannot swallow the pill restart AC today. Qualifiers: Atrial fibrillation type: chronic Qualified Code(s): I48.2 - Chronic atrial fibrillation (6) STEPHANIE (acute kidney injury) Current Visit: Yes Status: Acute Assessment and plan: noted rise in creatinine has decreased urine output today. will hold losartan will continue the albumin infusion and lasix for now. No IVF given ascitis and pleural effusion will recheck chem tomm, if worsening, will consult renal. - Time Spent With Patient 25 - 35 minutes - Subjective Interval history: seen at the bedside, denies any complaints, was eating lunch. s/p paracentesis and port placement with IR yesterday. Patient may have to stay here for the weekend given autorization issues c/o chest pain just after eating lunch./ - Constitutional Vitals: Temp Pulse Resp BP Pulse Ox 97.6 F 98 18 93/56 92 L 06/26/16 11:10 06/26/16 11:10 06/26/16 11:10 06/26/16 11:10 06/26/16 11:10 General appearance: Present: A&O X 3, no acute distress Exam: - Head Head exam: Present: atraumatic, normocephalic - Eye Eye exam: Present: PERRL, scleral icterus, conjuntiva pink Pupils: Present: PERRL - Neck Neck exam general surgery: Present: supple, trachea midline. Absent: lymphadenopathy - Respiratory Respiratory exam: Present: CTAB. Absent: accessory muscle use, rales, rhonchi, wheezes - Cardiovascular Cardiovascular exam: Present: irregular rhythm, +S1, +S2. Absent: diastolic murmur, gallop, rubs, systolic murmur - GI/Abdominal GI/Abdominal exam: Present: distended, firm, normal bowel sounds, tenderness, no peritoneal signs - Extremities Exam Extremities exam: Present: pedal edema, warm, radial pulses palpable and symetrical. Absent: calf tenderness, cyanotic Additional comments: significant BUE and BUE edema - Neurological Exam Neurological exam: Present: CN II-XII intact, oriented X3, no focal deficits. Absent: facial droop, speech deficit - Skin Skin exam: Present: dry. Absent: normal color Internal Medicine: Result - Labs CBC & Chem 7: 06/26/16 16:42 06/26/16 16:42 - ABG Interpretation ABG results: PT/INR, D-dimer PT 18.1 Seconds (9.4-12.1) H 06/25/16 08:23 - Impressions Impressions Guidance Needle Placement Ultrasound 06/25/16 00:00 IMPRESSION: Successful ultrasound and fluoroscopy guided Port-A-Cath placement D/ / Kirk Riley MD / Kirk Riley MD Interpreting Provider: Kirk Riley MD Insertion Tunneled Catheter 06/25/16 09:32 IMPRESSION: Successful ultrasound and fluoroscopy guided Port-A-Cath placement D/ / Kirk Riley MD / Kirk Riley MD Interpreting Provider: Kirk Riley MD Paracentesis Ultrasound 06/25/16 09:32 IMPRESSION: Successful ultrasound guided paracentesis. D/ / Kirk Riley MD / Kirk Riley MD Interpreting Provider: Kirk Riley MD - VTE Documentation of Mechanical Device: Graduated compression elastic hosiery Consult Discharge Plan - Plan Referrals: Jose Juan Colón MD [Primary Care Provider] -
[2016-06-26] MEDS: Pantoprazole 40 MG VIAL IVP SCH (16:31)
[2016-06-26] MEDS: *HR* OxyCODONE Immed Rel 5 MG TABLET PO PRN ×2 (16:34→22:31)
[2016-06-26 16:53] LABS: Basophils # 0.1 K/mcL (0.0-0.2); Basophils % 0.5 %; Eosinophils # 0.1 K/mcL (0.0-0.6); Eosinophils % 1.1 %; Hematocrit 31.9 % (37.5-50.1); Hemoglobin 11.2 g/dL (12.9-16.9); Immature Granulocytes % 3.4 % (0-4); Immature Platelets 6.1 % (1.1-6.1); Lymphocytes # 0.3 K/mcL (0.6-4.6); Lymphocytes % 3.1 %; Mean Corpuscular HGB Conc 35.1 g/dL (31.6-35.5); Mean Corpuscular Volume 94.1 fL (83.0-100.0); Mean Platelet Volume 11.1 fL (9.4-12.4); Monocytes # 0.7 K/mcL (0.0-1.3); Neutrophils # 9.2 K/mcL (1.6-8.9); Platelet Count 174 K/mcL (140-400); Red Blood Count 3.39 M/mcL (4.19-5.50); Red Cell Distribution Width 19.6 % (11.5-14.5); Segmented Neutrophils % 85.9 %
[2016-06-26 17:05] LABS: Calcium 7.8 mg/dL (8.6-10.8); Potassium 4.9 mEq/L (3.5-4.5)
[2016-06-26] MEDS: *HR* Rivaroxaban 15 MG TABLET PO SCH (20:31)
[2016-06-27] MEDS: Albumin 25% 25gram/100mL 25 GM/100 ML IV.SOLN IVPB SCH ×2 (00:09→12:03)
[2016-06-27 03:59] LABS: Basophils # 0.1 K/mcL (0.0-0.2); Basophils % 0.5 %; Eosinophils # 0.1 K/mcL (0.0-0.6); Hematocrit 31.3 % (37.5-50.1); Hemoglobin 10.8 g/dL (12.9-16.9); Immature Granulocytes % 3.7 % (0-4); Lymphocytes # 0.3 K/mcL (0.6-4.6); Mean Corpuscular HGB Conc 34.5 g/dL (31.6-35.5); Mean Corpuscular Hemoglobin 33.1 pg (28.0-33.3); Mean Platelet Volume 11.6 fL (9.4-12.4); Monocytes # 0.8 K/mcL (0.0-1.3); Monocytes % 7.1 %; Neutrophils # 9.4 K/mcL (1.6-8.9); Platelet Count 141 K/mcL (140-400); Red Blood Count 3.26 M/mcL (4.19-5.50); Red Cell Distribution Width 19.6 % (11.5-14.5); Segmented Neutrophils % 84.7 %
[2016-06-27 04:59] LABS: Albumin/Globulin Ratio 0.6 (1.1-2.2); Bilirubin,Total 21.9 mg/dL (0.2-1.2); Calcium 7.8 mg/dL (8.6-10.8); Globulin 3.3 g/dL (2.4-3.5); Potassium 5.5 mEq/L (3.5-4.5); Total Protein 5.3 g/dL (6.0-8.3)
[2016-06-27] MEDS: Pantoprazole 40 MG VIAL IVP SCH ×2 (05:30→17:34)
[2016-06-27 05:49] LABS: Bilirubin,Direct 20.7 mg/dL (0.0-0.5)
[2016-06-27 06:01] LABS: Bilirubin,Indirect 1.2 mg/dL (0.0-1.2)
[2016-06-27] MEDS: Furosemide 40 MG TABLET PO SCH (07:25)
[2016-06-27] MEDS: Insulin LISPRO 300 UNITS/3 ML VIAL SQ SCH ×3 (07:26→18:45)
[2016-06-27] MEDS: traMADol 50 MG TABLET PO PRN ×3 (07:31→21:56)
--- NOTE | 2016-06-27 11:18 | Nephrology Consult Note ---
Date of Encounter: 06/27/16 Time of Encounter: 09:25 Assessment and Plan (1) STEPHANIE (acute kidney injury) Current Visit: Yes Status: Acute STEPHANIE most likely r/t paracentesis, intravascular volume depletion versus hepatorenal syndrome. Most likely superimposed on CKD with prior baseline creat 1.2-1.4. Due to poor prognosis not A dialysis candidate. Will stop IV Lasix and start on Lasix drip. Lopez catheter ordered. Will do renal US to r/o obstructive uropathy and proceed with renal workup. History of Present Illness - Reason for Consult Acute Kidney Injury - History of Present Illness Mr. Mae is a 80 year old male with recent diagnosis of liver mass/ cholangiocarcinoma at [facility], that was determined inoperable. Other PMH HTN, Afib, diabetes and DVT. This morning Mr. 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 Information obtained from previous notes. While at [facility] he received Lasix and palliative radiation. Mr. Mae was to have paracentesis for relief of ascites on June 24 however INR 2.4 and was direct admit for [facility] with recheck INR. Had paracentesis x 2 liters on June 25 and also had tunneled catheter placed at that time. He isjaundiced, has anasarca and ascites. CXR shows right moderate pleural effusion and small pleural effusion on left. He is receiving Albumin/Lasix. Stated in notes wants to be DNR-CC. Labs from [id number] indicate baseline creat 1.2-1,4. Nursing staff states bladder scan consistently > 275cc. Past Med Surg Social Fam HX - Past Medical History Medical history: atrial fibrillation, cancer (cholangiocarcinoma), DVT, diabetes , hypertension, pulmonary embolus, other Psychiatric history: no psych history - Past Surgical History Surgical History: other (prostate surgery for BPH, liver biopsy) - Social History Smoking Status: Former smoker Packs per day: quit 50years ago Smokeless Tobacco Status: No Alcohol use: occasionally Drug use: none - Family History Mother Living Status: Hx Family Cancer: Yes (breast cancer) Father Living Status: Cause of : IA Hx Family Cardiac Disorders: Yes Sister Name: Debra Living Status: Cause of : cirrhosis Hx Family Endocrine Disorder: Yes (Diabetes Mellitus) Hx Family Neurologic Disorders: Yes (CVA) Son Living Status: Still Living Medications and Allergies Rivaroxaban [Xarelto] 20 mg PO DAILY #30 tablet 09/24/15 [Rx] Atenolol [Tenormin] 50 mg PO DAILY 06/04/16 [History] FentaNYL PATCH [Duragesic] 12 mcg TD Q72H #10 patch.[id number] 06/24/16 [Rx] Furosemide [Lasix] 20 mg PO DAILY #30 tablet 06/24/16 [Rx] Spironolactone [Aldactone] 50 mg PO DAILY #30 tablet 06/24/16 [Rx] Amlodipine [Norvasc] 5 mg PO DAILY 06/25/16 [History] Fluticasone Propionate Nasal [Flonase] 50 mcg NS DAILY 06/25/16 [History] Insulin LISPRO [Humalog] 0 - 10 unit SQ QID 06/25/16 [History] Insulin NPH, HUMAN [HumuLIN N] 10 unit SQ HS 06/25/16 [History] Loratadine [Allergy Relief] 10 mg PO DAILY 06/25/16 [History] Ondansetron HCl [Zofran] 4 mg PO Q6H PRN 06/25/16 [History] Pantoprazole Sodium [Protonix] 40 mg PO DAILY 06/25/16 [History] Tramadol HCl [Ultram] 50 mg PO Q4H PRN 06/25/16 [History] Allergies dabigatran etexilate [From Pradaxa] Adverse Reaction (Unknown, Verified 07:21) Migraine fesoterodine [From Toviaz] Adverse Reaction (Unknown, Verified 06/04/16 07:21) See Comments URINARY RETENTION lisinopril Adverse Reaction (Unknown, Verified 06/04/16 07:21) See Comments URINARY RETENTION Review of Systems All Systems: reviewed and no additional remarkable complaints except as stated Exam - Vital Signs Vital signs: Initial Vital Signs Pulse Resp BP Pulse Ox 97 16 135/87 92 L 06/24/16 11:32 06/24/16 11:32 06/24/16 11:32 06/24/16 11:32 Vital Signs - Last 8 Hours Temp Pulse Resp BP Pulse Ox 06/27/16 06:48 97.5 F L 87 18 100/63 91 L 06/27/16 03:25 97.5 F L 87 15 99/60 87 L Intake and Output 06/26/16 06/27/16 06/27/16 22:59 07:59 15:59 Intake Total Output Total Balance Intake: IV Fluids Flexbumin 25 gm In 100 ml @ 60 mls/hr IVPB Q12H ETIENNE Rx#:[id number] Oral Output: Urine Other: Weight Blood Glucose* Patient Weight 06/28/16 00:59 Weight 237 kg - General Appearance General appearance: well-developed, well-nourished, appears started age Neck: no JVD, no carotid bruit Respiratory: rhonchi Cardiology: regular rate, regular rhythm Additional Comments: anasarca, ascites Gastrointestinal: hypoactive bowel sounds, no tenderness, distended Integumentary: warm and dry Additional Comments: jaundiced Psychiatric: mood/affect appropriate, cooperative Results - Lab Results 06/27/16 03:50 06/27/16 04:37 Most recent lab results Calcium 7.8 mg/dL (8.6-10.8) L 06/27/16 04:37 Consult Discharge Plan - Plan Referrals: Jose Juan Colón MD [Primary Care Provider] -
[2016-06-27] MEDS ORDERED: Furosemide 240 MG in D5% in Water 96 ML IVC SCH (11:29)
--- NOTE | 2016-06-27 11:36 | Internal Med Progress Note ---
Date of Encounter: 06/27/16 Time of Encounter: 11:33 - Assessment and plan (1) Ascites Current Visit: No Status: Acute Assessment and plan: Patient with recent diagnosis of cholangiocarcinoma. s/p IR guided therapeutic paracentesis this admission. will continue IV albumin and lasix . Qualifiers: Ascites type: malignant Qualified Code(s): R18.0 - Malignant ascites (2) Cholangiocarcinoma Current Visit: No Status: Acute Assessment and plan: Patient recently diagnosed with cholangiocarcinoma via liver biopsy at [facility]. He received palliative radiation therapy and was discharged to [facility] 3 days ago. Pain control with PRN tramadol and oxycodone for severe pain. denies any pain at this time. will consult palliative care for further management. (3) Elevated INR Current Visit: Yes Status: Acute Assessment and plan: On AC for atrial fib coumadin was held for the paracentesis and IR gugided port placement . 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 stable. Qualifiers: Atrial fibrillation type: chronic Qualified Code(s): I48.2 - Chronic atrial fibrillation (6) STEPHANIE (acute kidney injury) Current Visit: Yes Status: Acute Assessment and plan: worsening kidney fxn. has decreased urine output today. will hold losartan will continue the albumin infusion and consulted renal. has been started on Iv lasix drip. No IVF given ascitis and pleural effusion dobson placed, will follow further renal recommendation (7) Goals of care, counseling/discussion Current Visit: Yes Status: Acute Assessment and plan: recently diagnosed cholangiocarcinoma, today the repeat labwork shows worsening renal failure with worsening jaundice and mod to large pleural effusion. At this time he carries a very poor prognosis given rapd decline in patient's health, he may be hospice eligible with comfort measures. discussed with DR. Carrillo who has spoken with the daughter and agree with the same. Plan to transfer to Hospice bed after palliative consult today. - Time Spent With Patient 25 - 35 minutes - Subjective Interval history: seen at the bedside, denies any complaints, appears somnolent, does not c/o chest pain today, does not appear to be in respiratory disress. s/p paracentesis and port placement with IR . noted to have decreased urine output since yesterday, s/p dobson placement. repeat labs show worsening renal fxn, worsening jaundice and mod to large pleural effusion. overall poor prognosis, patient may very likely be hospice eligible. - Constitutional Vitals: Temp Pulse Resp BP Pulse Ox 97.4 F L 87 20 96/56 93 L 06/27/16 11:12 06/27/16 11:12 06/27/16 11:12 06/27/16 11:12 06/27/16 11:12 General appearance: Present: A&O X 3, no acute distress Exam: - Head Head exam: Present: atraumatic, normocephalic - Eye Eye exam: Present: PERRL, scleral icterus, conjuntiva pink Pupils: Present: PERRL - Neck Neck exam general surgery: Present: supple, trachea midline. Absent: lymphadenopathy - Respiratory Respiratory exam: Present: decreased breath sounds on the right side, no creptns now. Absent: accessory muscle use, rales, rhonchi, wheezes - Cardiovascular Cardiovascular exam: Present: irregular rhythm, +S1, +S2. Absent: diastolic murmur, gallop, rubs, systolic murmur - GI/Abdominal GI/Abdominal exam: Present: distended, firm, normal bowel sounds, tenderness, no peritoneal signs - Extremities Exam Extremities exam: Present: pedal edema, warm, radial pulses palpable and symetrical. Absent: calf tenderness, cyanotic Additional comments: significant BUE and BUE edema - Neurological Exam Neurological exam: Present: CN II-XII intact, oriented X3, no focal deficits. Absent: facial droop, speech deficit - Skin Skin exam: Present: dry, deeply icteric. Absent: normal color Internal Medicine: Result - Labs CBC & Chem 7: 06/27/16 03:50 06/27/16 04:37 Labs: Short CBC 06/26/16 06/27/16 Range/Units 16:42 03:50 WBC 10.8 11.1 (4.3-11.1) K/mcL Hgb 11.2 L 10.8 L (12.9-16.9) g/dL Hct 31.9 L 31.3 L (37.5-50.1) % Plt Count 174 141 (140-400) K/mcL Neutrophils # 9.2 H 9.4 H (1.6-8.9) K/mcL BMP 06/26/16 06/27/16 16:42 04:37 Sodium 136 136 Potassium 4.9 H 5.5 H Chloride 101 102 Carbon Dioxide 20 20 BUN 101 H D 109 H Creatinine 3.71 H 4.24 H Glucose 163 H 163 H Calcium 7.8 L 7.8 L Liver Function 06/27/16 Range/Units 04:37 Total Bilirubin 21.9 H (0.2-1.2) mg/dL Direct Bilirubin 20.7 H (0.0-0.5) mg/dL AST 73 H (5-34) Units/L ALT 38 (0-55) Units/L Alkaline Phosphatase 592 H (38-126) Units/L Albumin 2.0 L D (3.5-5.0) g/dL - ABG Interpretation ABG results: PT/INR, D-dimer PT 18.1 Seconds (9.4-12.1) H 06/25/16 08:23 - Impressions Impressions Chest X-Ray 06/26/16 17:04 IMPRESSION: Moderate to large right pleural effusion and small left pleural effusion have increased since the CT on 06/09/2016. D/ / Eric Roe MD / Eric Roe MD Interpreting Provider: Eric Roe MD - VTE Documentation of Mechanical Device: Intermittent pneumatic compression device Consult Discharge Plan - Plan Referrals: Jose Juan Colón MD [Primary Care Provider] -
--- NOTE | 2016-06-27 11:46 | Urology - Consult Note ---
Date of Encounter: 06/27/16 Time of Encounter: 11:45 - Assessment and Plan (1) BPH (benign prostatic hypertrophy) with urinary retention Current Visit: Yes Status: Acute Assessment and plan: I was able to place a 16 Slovak coude catheter. I spent a long time discussing his care with him and his son, who I know well. Please call with any questions. Urology CN:HPI Consult date: 06/27/16 Reason for consult Urology: Difficult Dobson History of present illness: 80 year old man well known to the urology service was admitted for cholangiocarcinoma. He has a history of BPH and had a Greenlight performed in 2013. The RN was not able to place a dobson catheter. I was consulted to assist in placement. Past Med Surg Social Fam HX - Past Medical History Medical history: atrial fibrillation, cancer (cholangiocarcinoma), DVT, diabetes , hypertension, pulmonary embolus, other Psychiatric history: no psych history - Past Surgical History Surgical History: other (prostate surgery for BPH, liver biopsy) - Social History Smoking Status: Former smoker Packs per day: quit 50years ago Smokeless Tobacco Status: No Alcohol use: occasionally Drug use: none - Family History Mother Living Status: Hx Family Cancer: Yes (breast cancer) Father Living Status: Cause of : [place] Hx Family Cardiac Disorders: Yes Sister Name: Debra Living Status: Cause of : cirrhosis Hx Family Endocrine Disorder: Yes (Diabetes Mellitus) Hx Family Neurologic Disorders: Yes (CVA) Son Living Status: Still Living Medications and Allergies Rivaroxaban [Xarelto] 20 mg PO DAILY #30 tablet 09/24/15 [Rx] Atenolol [Tenormin] 50 mg PO DAILY 06/04/16 [History] FentaNYL PATCH [Duragesic] 12 mcg TD Q72H #10 patch.td72 06/24/16 [Rx] Furosemide [Lasix] 20 mg PO DAILY #30 tablet 06/24/16 [Rx] Spironolactone [Aldactone] 50 mg PO DAILY #30 tablet 06/24/16 [Rx] Amlodipine [Norvasc] 5 mg PO DAILY 06/25/16 [History] Fluticasone Propionate Nasal [Flonase] 50 mcg NS DAILY 06/25/16 [History] Insulin LISPRO [Humalog] 0 - 10 unit SQ QID 06/25/16 [History] Insulin NPH, HUMAN [HumuLIN N] 10 unit SQ HS 06/25/16 [History] Loratadine [Allergy Relief] 10 mg PO DAILY 06/25/16 [History] Ondansetron HCl [Zofran] 4 mg PO Q6H PRN 06/25/16 [History] Pantoprazole Sodium [Protonix] 40 mg PO DAILY 06/25/16 [History] Tramadol HCl [Ultram] 50 mg PO Q4H PRN 06/25/16 [History] Allergies dabigatran etexilate [From Pradaxa] Adverse Reaction (Unknown, Verified 07:21) Migraine fesoterodine [From Toviaz] Adverse Reaction (Unknown, Verified 06/04/16 07:21) See Comments URINARY RETENTION lisinopril Adverse Reaction (Unknown, Verified 06/04/16 07:21) See Comments URINARY RETENTION Review of Systems ROS unobtainable: due to mental status - Genitourinary difficulty urinating Exam Initial Vital Signs Pulse Resp BP Pulse Ox 97 16 135/87 92 L 06/24/16 11:32 06/24/16 11:32 06/24/16 11:32 06/24/16 11:32 - General physical appearance Present: well developed, well nourished, no distress - Eyes Present: icteric - ENT Present: normal nares - Neck Present: trachea midline - Respiratory Present: normal respiratory effort - Cardiovascular Cardiovascular exam IM: RRR - Abdomen Abdomen: Present: distended (+ anasarca) Urology Results - Labs 06/27/16 03:50 06/27/16 04:37 Abnormal lab results RBC 3.26 M/mcL (4.19-5.50) L 06/27/16 03:50 Hgb 10.8 g/dL (12.9-16.9) L 06/27/16 03:50 Hct 31.3 % (37.5-50.1) L 06/27/16 03:50 RDW 19.6 % (11.5-14.5) H 06/27/16 03:50 Neutrophils # 9.4 K/mcL (1.6-8.9) H 06/27/16 03:50 Lymphocytes # 0.3 K/mcL (0.6-4.6) L 06/27/16 03:50 Immature Plt Fraction 7.0 % (1.1-6.1) H 06/27/16 03:50 PT 18.1 Seconds (9.4-12.1) H 06/25/16 08:23 Potassium 5.5 mEq/L (3.5-4.5) H 06/27/16 04:37 BUN 109 mg/dL (8-26) H 06/27/16 04:37 Creatinine 4.24 mg/dL (0.72-1.25) H 06/27/16 04:37 Est GFR ( Amer) 16 (> 60) L 06/27/16 04:37 Est GFR (Non-Af Amer) 14 (> 60) L 06/27/16 04:37 Glucose 163 mg/dL (70-99) H 06/27/16 04:37 POC Glucose 127 (58-89) H 06/27/16 10:57 Calculated Osmolality 320 (280-300) H 06/27/16 04:37 Calcium 7.8 mg/dL (8.6-10.8) L 06/27/16 04:37 Total Bilirubin 21.9 mg/dL (0.2-1.2) H 06/27/16 04:37 Direct Bilirubin 20.7 mg/dL (0.0-0.5) H 06/27/16 04:37 AST 73 Units/L (5-34) H 06/27/16 04:37 Alkaline Phosphatase 592 Units/L (38-126) H 06/27/16 04:37 Serum Total Protein 5.3 g/dL (6.0-8.3) L 06/27/16 04:37 Albumin 2.0 g/dL (3.5-5.0) L D 06/27/16 04:37 Albumin/Globulin Ratio 0.6 (1.1-2.2) L 06/27/16 04:37 Diabetes panel 06/26/16 06/27/16 Range/Units 16:42 04:37 Sodium 136 136 (136-145) mEq/L Potassium 4.9 H 5.5 H (3.5-4.5) mEq/L Chloride 101 102 (98-109) mEq/L Carbon Dioxide 20 20 (19-29) mEq/L BUN 101 H D 109 H (8-26) mg/dL Creatinine 3.71 H 4.24 H (0.72-1.25) mg/dL Glucose 163 H 163 H (70-99) mg/dL Calcium 7.8 L 7.8 L (8.6-10.8) mg/dL AST 73 H (5-34) Units/L ALT 38 (0-55) Units/L Alkaline Phosphatase 592 H (38-126) Units/L Albumin 2.0 L D (3.5-5.0) g/dL Calcium panel 06/26/16 06/27/16 Range/Units 16:42 04:37 Calcium 7.8 L 7.8 L (8.6-10.8) mg/dL Albumin 2.0 L D (3.5-5.0) g/dL Pituitary panel 06/26/16 06/27/16 Range/Units 16:42 04:37 Sodium 136 136 (136-145) mEq/L Potassium 4.9 H 5.5 H (3.5-4.5) mEq/L Chloride 101 102 (98-109) mEq/L Carbon Dioxide 20 20 (19-29) mEq/L BUN 101 H D 109 H (8-26) mg/dL Creatinine 3.71 H 4.24 H (0.72-1.25) mg/dL Glucose 163 H 163 H (70-99) mg/dL Calcium 7.8 L 7.8 L (8.6-10.8) mg/dL Adrenal panel 06/26/16 06/27/16 Range/Units 16:42 04:37 Sodium 136 136 (136-145) mEq/L Potassium 4.9 H 5.5 H (3.5-4.5) mEq/L Chloride 101 102 (98-109) mEq/L Carbon Dioxide 20 20 (19-29) mEq/L BUN 101 H D 109 H (8-26) mg/dL Creatinine 3.71 H 4.24 H (0.72-1.25) mg/dL Glucose 163 H 163 H (70-99) mg/dL Calcium 7.8 L 7.8 L (8.6-10.8) mg/dL Total Bilirubin 21.9 H (0.2-1.2) mg/dL AST 73 H (5-34) Units/L ALT 38 (0-55) Units/L Alkaline Phosphatase 592 H (38-126) Units/L Albumin 2.0 L D (3.5-5.0) g/dL All other labs normal. Procedures:Urology - Catheter Insertion (Urinary) Prophylactic antibiotics given: No Bladder Scan/Ultrasound used before catheterization: No Estimated amount of urin (mLs): 300 Preparation: Povidone-Iodine Type of catheter inserted: 2 way Catheter Slovak Size: 16 Topical anesthesia used: Yes Results: successfully catheterized-immediate flow Urine Appearance: Clear Patient tolerated procedure: well Complications: none Additional comments: 16 coude catheter used. Consult Discharge Plan - Plan Referrals: Jose Juan Colón MD [Primary Care Provider] -
--- NOTE | 2016-06-27 13:01 | Palliative - Consult Note ---
Date of Encounter: 06/27/16 Time of Encounter: 12:35 - Assessment and Plan (1) Cancer associated pain Current Visit: Yes Status: Acute Assessment and plan: Currently taking oxycodone 5mg as needed. Would avoid morphine given his worsening renal function. (2) Dyspnea Current Visit: Yes Status: Acute Assessment and plan: Supportive care, position for comfort, paracentesis when indicated. Qualifiers: Dyspnea type: unspecified Qualified Code(s): R06.00 - Dyspnea, unspecified (3) Goals of care, counseling/discussion Current Visit: Yes Status: Acute Assessment and plan: Goals of care discussion pending family meeting. Family meeting with the patient's children: Aaron Perdue Dwayne, Bruce. Discussed goals of care including discharge planning. Reviewed hospice services in detail. The patient and family are considering options. They are interested in hospice care pending his body's response to the current treatment plan. We reviewed his physical assessment, plan of care, alternative options. CODE STATUS established as DNR comfort care. The palliative care team will continue to follow, thank you for this consultation. (4) Ascites Current Visit: No Status: Acute Assessment and plan: Last paracentesis was 06/25/16 with 2 liters drained. Mr. Mae reports an increase in abdominal discomfort and girth. Further recommendations pending goals of care. Qualifiers: Ascites type: malignant Qualified Code(s): R18.0 - Malignant ascites (5) Cholangiocarcinoma Current Visit: No Status: Acute Assessment and plan: Oncology following. Palliative-CN HPI - Data of Consult Patient: new to practice Consult date: 06/27/16 Requesting Physician: Selvin Lynch Primary Care Provider: Jose Juan Colón MD - Consult Narrative Palliative Care/Comfort Measures: Palliative care Reason for consult: Goals of care History of present illness: Mr. Mae is a 80 year old male admitted to [facility] with an elevated INR and ascites. Approximately one month ago, the patient was having abdominal pain, and evaluation revealed cholangiocarcinoma. He was evaluated at [facility] and found to be inoperable. The patient did receive palliative radiation for symptom control. He was transitioned to local rehabilitation facility on 06/18/2016. During his care at the local rehabilitation facility, the patient developed worsening ascites. He was evaluated at [facility] on the date of admission for therapeutic paracentesis. During the evaluation, he was found to have an elevated INR at 2.4. He was admitted to [facility] for management of his INR with [facility]. The following day, he was taken to interventional radiology for the procedure. Unfortunately, the patient was only able to have 2 L of ascites drained due to his vital signs during the paracentesis. Following the procedure, the patient developed an acute on chronic kidney injury nephrology has been consulted. Chest x-ray evaluation depicts a moderate to large right-sided pleural effusion and a small left pleural effusion. The palliative care team was consulted to assist with goals of care management. Oncology has also been consulted for further recommendations. CC: Selvin Lynch Past Med Surg Social Fam HX - Past Medical History Medical history: atrial fibrillation, cancer (cholangiocarcinoma), DVT, diabetes , hypertension, pulmonary embolus, other Psychiatric history: no psych history - Past Surgical History Surgical History: other (prostate surgery for BPH, liver biopsy) - Social History Smoking Status: Former smoker Packs per day: quit 50years ago Smokeless Tobacco Status: No Alcohol use: occasionally Drug use: none - Family History Mother Living Status: Hx Family Cancer: Yes (breast cancer) Father Living Status: Cause of : [place] Hx Family Cardiac Disorders: Yes Sister Name: Debra Living Status: Cause of : cirrhosis Hx Family Endocrine Disorder: Yes (Diabetes Mellitus) Hx Family Neurologic Disorders: Yes (CVA) Son Living Status: Still Living Medications and Allergies Rivaroxaban [Xarelto] 20 mg PO DAILY #30 tablet 09/24/15 [Rx] Atenolol [Tenormin] 50 mg PO DAILY 06/04/16 [History] FentaNYL PATCH [Duragesic] 12 mcg TD Q72H #10 patch.td72 06/24/16 [Rx] Furosemide [Lasix] 20 mg PO DAILY #30 tablet 06/24/16 [Rx] Spironolactone [Aldactone] 50 mg PO DAILY #30 tablet 06/24/16 [Rx] Amlodipine [Norvasc] 5 mg PO DAILY 06/25/16 [History] Fluticasone Propionate Nasal [Flonase] 50 mcg NS DAILY 06/25/16 [History] Insulin LISPRO [Humalog] 0 - 10 unit SQ QID 06/25/16 [History] Insulin NPH, HUMAN [HumuLIN N] 10 unit SQ HS 06/25/16 [History] Loratadine [Allergy Relief] 10 mg PO DAILY 06/25/16 [History] Ondansetron HCl [Zofran] 4 mg PO Q6H PRN 06/25/16 [History] Pantoprazole Sodium [Protonix] 40 mg PO DAILY 06/25/16 [History] Tramadol HCl [Ultram] 50 mg PO Q4H PRN 06/25/16 [History] Allergies dabigatran etexilate [From Pradaxa] Adverse Reaction (Unknown, Verified 07:21) Migraine fesoterodine [From Toviaz] Adverse Reaction (Unknown, Verified 06/04/16 07:21) See Comments URINARY RETENTION lisinopril Adverse Reaction (Unknown, Verified 06/04/16 07:21) See Comments URINARY RETENTION - Constitutional Constitutional ROS PAL: decreased appetite, lethargy - EENT Eyes: no change in vision Ears: no decreased hearing - Cardiovascular Cardiovascular ROS: chest pain, dyspnea on exertion, edema, leg edema, orthopnea - Respiratory Respiratory: dyspnea on exertion - Gastrointestinal Gastrointestinal: abdominal pain, bloating, no constipation, no diarrhea, no hematemesis, no loose stools, no melena, no nausea, no vomiting Additional comments: ascites, juandice - Genitourinary Genitourinary ROS male: no difficulty urinating, no dysuria - Musculoskeletal Musculoskeletal ROS IM: muscle weakness - Integumentary ROS Integumentary: jaundice, other (skin irritation) - Neurological Neurological ROS: weakness Palliative Care-Exam - Constitutional Vitals: Temp Pulse Resp BP Pulse Ox 97.4 F L 87 20 96/56 93 L 06/27/16 11:12 06/27/16 11:12 06/27/16 11:12 06/27/16 11:12 06/27/16 11:12 Internal Medicine - CN: Reslt - Labs CBC & Chem 7: 06/27/16 03:50 06/27/16 04:37 Labs: Short CBC 06/26/16 06/27/16 Range/Units 16:42 03:50 WBC 10.8 11.1 (4.3-11.1) K/mcL Hgb 11.2 L 10.8 L (12.9-16.9) g/dL Hct 31.9 L 31.3 L (37.5-50.1) % Plt Count 174 141 (140-400) K/mcL Neutrophils # 9.2 H 9.4 H (1.6-8.9) K/mcL BMP 06/26/16 06/27/16 16:42 04:37 Sodium 136 136 Potassium 4.9 H 5.5 H Chloride 101 102 Carbon Dioxide 20 20 BUN 101 H D 109 H Creatinine 3.71 H 4.24 H Glucose 163 H 163 H Calcium 7.8 L 7.8 L Liver Function 06/27/16 Range/Units 04:37 Total Bilirubin 21.9 H (0.2-1.2) mg/dL Direct Bilirubin 20.7 H (0.0-0.5) mg/dL AST 73 H (5-34) Units/L ALT 38 (0-55) Units/L Alkaline Phosphatase 592 H (38-126) Units/L Albumin 2.0 L D (3.5-5.0) g/dL - ABG Interpretation ABG results: PT/INR, D-dimer PT 18.1 Seconds (9.4-12.1) H 06/25/16 08:23 - Impressions Impressions Chest X-Ray 06/26/16 17:04 IMPRESSION: Moderate to large right pleural effusion and small left pleural effusion have increased since the CT on 06/09/2016. D/ / Eric Roe MD / Eric Roe MD Interpreting Provider: Eric Roe MD Consult Discharge Plan - Plan Referrals: Jose Juan Colón MD [Primary Care Provider] - Palliative Quality Palliative Quality: Screen for Code Status: Yes, Screen for Goals of Care: Yes, Screen for Pain: Yes, If Pain Regimen Started, Initiate Bowel Regimen: NA, Screen for Nausea/Vomitting: Yes Code Status: 06/24/16 15:36 Resuscitation Status: Active [RES] Routine Comment: Resuscitation Status: DNR-Comfort Care
[2016-06-27] MEDS ORDERED: 0.9 % Sodium Chloride 500 ML ONE (17:52)
[2016-06-27 22:36] LABS: Bilirubin,Urine Large (Negative); Blood,Urine Large (Negative); Clarity,Urine Turbid (Clear); Color,Urine Orange (Yellow); Glucose,Urine (UA) 100 mg/dL (Normal); Ketones,Urine Trace mg/dL (Negative); Leukocyte Esterase,Urine Moderate (Negative); Nitrite,Urine Positive (Negative); PH,Urine 5.5 pH Units (5.0-8.0); Protein,Urine 100 mg/dL (Neg-Trace); Specific Gravity,Urine 1.022 (1.010-1.025); Urobilinogen,Urine Normal (Normal)
[2016-06-27 22:41] LABS: RBC,Urine 50-100 per hpf (0-3); Squamous Epithelial Cell,Urine Many per lpf (None-Few); WBC,Urine 30-50 per hpf (0-3)
[2016-06-27 22:45] LABS: Amorphous Sediment,Urine Few (Few)
[2016-06-27 22:46] LABS: Bacteria,Urine Few per hpf (None-Few); Granular Casts,Urine Few per lpf (None Seen)
[2016-06-28] MEDS: Albumin 25% 25gram/100mL 25 GM/100 ML IV.SOLN IVPB SCH ×2 (00:18→12:41)
[2016-06-28] MEDS: Insulin LISPRO 300 UNITS/3 ML VIAL SQ SCH ×3 (00:27→12:02)
[2016-06-28] MEDS: *HR* OxyCODONE Immed Rel 5 MG TABLET PO PRN (02:00)
[2016-06-28] MEDS: Pantoprazole 40 MG VIAL IVP SCH (06:05)
--- NOTE | 2016-06-28 08:30 | Nephrology Progress Note ---
Date of Encounter: 06/28/16 Time of Encounter: 08:27 - Assessment and Plan (1) STEPHANIE (acute kidney injury) Current Visit: Yes Status: Acute Patient has acute kidney injury in the setting of advanced cholangiocarcinoma. Unfortunately he remains oliguric. As of yesterday his renal function was continuing to worsen. Today's labs are pending. He is on a Lasix infusion. Unfortunately there is not much to offer the patient. He is not a dialysis candidate because of his overall poor prognosis from his cholangiocarcinoma. We will check labs today and increase his Lasix infusion. I did discuss his status with the patient's daughter. She is in agreement that he is not a dialysis candidate. (2) BPH (benign prostatic hypertrophy) with urinary retention Current Visit: Yes Status: Acute (3) Cholangiocarcinoma Current Visit: No Status: Acute Subjective Interval history: The patient remains quite weak and debilitated. There is no lab today. Urine output yesterday is recorded as only 230 mL. Urology had to assist with placing a Lopez catheter yesterday. Objective - Vital Signs Vital signs: Vital Signs Temp Pulse Resp BP Pulse Ox 06/28/16 08:03 97.6 F 74 18 82/46 91 L 06/27/16 22:13 97.6 F 92 15 99/50 93 L 06/27/16 15:32 97.6 F 90 18 96/61 93 L 06/27/16 11:12 97.4 F L 87 20 96/56 93 L Intake and Output 06/27/16 06/28/16 06/28/16 23:59 07:59 15:59 Intake Total 120 / 120 345 / 345 Output Total 5 Balance 90 / 90 340 / 340 Intake: IV Fluids 320 / 320 0.9 % Sodium Chloride 500 165 / 165 ML As .ROUTE .STK-MED ONE Rx#:[id number] Lasix 240 MG In Dextrose 55 / 55 5% 96 ML @ 10 MG/HR 5 mls /hr IVC .Q24H ETIENNE Rx#: [id number] Flexbumin 25 gm In 100 ml 100 / 100 @ 60 mls/hr IVPB Q12H ETIENNE Rx#:[id number] Oral 120 / 120 25 / 25 Output: Catheter 5 / 5 Other: Stool Size Small Stool Consistency soft Stool Characteristics Normal for Patient Stool Color Brown # Bowel Movements 1 Blood Glucose* 145 - General Appearance Exam: Patient appears quite ill. He is in no acute distress. He is obviously jaundiced. Lungs to manage breath sounds. Heart irregular rate and rhythm. There is no friction rub. Abdomen is distended. There is 2+ lower extremity swelling. - Lab 06/27/16 03:50 06/27/16 04:37 Most recent lab results Calcium 7.8 mg/dL (8.6-10.8) L 06/27/16 04:37 Urine Sodium 32.0 mEq/L 06/27/16 22:00 - VTE Documentation of Mechanical Device: Intermittent pneumatic compression device Consult Discharge Plan - Plan Referrals: Jose Juan Colón MD [Primary Care Provider] -
[2016-06-28] MEDS ORDERED: Furosemide 240 MG in D5% in Water 96 ML IVC SCH (08:31)
--- NOTE | 2016-06-28 09:32 | Palliative Progress Note ---
Date of Encounter: 06/28/16 Time of Encounter: 09:31 - Assessment and plan (1) Cancer associated pain Current Visit: Yes Status: Acute Assessment and plan: Mr. Mae has had difficulty swallowing pills. Will change to liquid oxycodone. May consider adding fentanyl patch if needed. Monitor use. In the event that he is unable to tolerate the oxycodone, will start Fentanyl IVP PRN for pain or dyspnea. (2) Dyspnea Current Visit: Yes Status: Acute Assessment and plan: Position for comfort. Scant urine output with Lasix drip. Known mod-large right sided pleural effusion with increasing ascites. Consider consulting interventional radiology if coags will permit intervention. Therapeutic thoracentesis/paracentesis no longer an option due to INR of 2.0. Discussed with family. Will treat medically as needed. Qualifiers: Qualified Code(s): R06.00 - Dyspnea, unspecified (3) Goals of care, counseling/discussion Current Visit: Yes Status: Acute Assessment and plan: Family at bedside. Discussed physical assessment findings and plan of care. Labs pending. Will adjust course of care once lab work is available. Lab work reviewed with patient's family. Given the rapid decline in his health , the family has opted to initiate full comfort measures. Will discontinue medications other than those for comfort. Discussed case with nephrology, updated oncology, hospitalist aware. (4) Ascites Current Visit: Yes Status: Acute Assessment and plan: Consider consulting interventional radiology if coag studies are within limits. Qualifiers: Qualified Code(s): R18.0 - Malignant ascites (5) Cholangiocarcinoma Current Visit: No Status: Acute Assessment and plan: Oncology following. Goal is comfort measures. - Time Spent With Patient Total time spent is greater than 50% in coordination of care (as documented) at patient's floor/unit and/or counseling patient: - Subjective Interval history: Mr. Mae is lying in bed. Daughter reports restless night. He had difficulty swallowing pills and refused his morning meal. Urine output scant despite lasix drip. Morning labs pending. - Constitutional Vitals: Abnormal lab results RBC 3.26 M/mcL (4.19-5.50) L 06/27/16 03:50 Hgb 10.8 g/dL (12.9-16.9) L 06/27/16 03:50 Hct 31.3 % (37.5-50.1) L 06/27/16 03:50 RDW 19.6 % (11.5-14.5) H 06/27/16 03:50 Neutrophils # 9.4 K/mcL (1.6-8.9) H 06/27/16 03:50 Lymphocytes # 0.3 K/mcL (0.6-4.6) L 06/27/16 03:50 Immature Plt Fraction 7.0 % (1.1-6.1) H 06/27/16 03:50 PT 18.1 Seconds (9.4-12.1) H 06/25/16 08:23 Potassium 5.5 mEq/L (3.5-4.5) H 06/27/16 04:37 BUN 109 mg/dL (8-26) H 06/27/16 04:37 Creatinine 4.24 mg/dL (0.72-1.25) H 06/27/16 04:37 Est GFR ( Amer) 16 (> 60) L 06/27/16 04:37 Est GFR (Non-Af Amer) 14 (> 60) L 06/27/16 04:37 Glucose 163 mg/dL (70-99) H 06/27/16 04:37 POC Glucose 145 (58-89) H 06/27/16 22:22 Calculated Osmolality 320 (280-300) H 06/27/16 04:37 Calcium 7.8 mg/dL (8.6-10.8) L 06/27/16 04:37 Total Bilirubin 21.9 mg/dL (0.2-1.2) H 06/27/16 04:37 Direct Bilirubin 20.7 mg/dL (0.0-0.5) H 06/27/16 04:37 AST 73 Units/L (5-34) H 06/27/16 04:37 Alkaline Phosphatase 592 Units/L (38-126) H 06/27/16 04:37 Serum Total Protein 5.3 g/dL (6.0-8.3) L 06/27/16 04:37 Albumin 2.0 g/dL (3.5-5.0) L D 06/27/16 04:37 Albumin/Globulin Ratio 0.6 (1.1-2.2) L 06/27/16 04:37 Urine Color [place] (Yellow) A 06/27/16 22:00 Urine Clarity Turbid (Clear) A 06/27/16 22:00 Urine Protein 100 mg/dL (Neg-Trace) H 06/27/16 22:00 Urine Glucose (UA) 100 mg/dL (Normal) H 06/27/16 22:00 Urine Ketones Trace mg/dL (Negative) H 06/27/16 22:00 Urine Blood Large (Negative) H 06/27/16 22:00 Urine Nitrite Positive (Negative) A 06/27/16 22:00 Urine Bilirubin Large (Negative) H 06/27/16 22:00 Ur Leukocyte Esterase Moderate (Negative) H 06/27/16 22:00 Urine Microscopic RBC 50-100 per hpf (0-3) H 06/27/16 22:00 Urine Microscopic WBC 30-50 per hpf (0-3) H 06/27/16 22:00 Ur Squamous Epith Cells Many per lpf (None-Few) H 06/27/16 22:00 Granular Casts Few per lpf (None Seen) H 06/27/16 22:00 Ur Culture Indicated? YES (NO) A 06/27/16 22:00 Exam: 80 year old male patient, jaundice, moaning on occasion with grunting respirations. - ENT ENT exam: Present: mucous membranes dry - Respiratory Respiratory exam: Present: accessory muscle use, decreased breath sounds (R>L). Absent: respiratory distress - Cardiovascular Cardiovascular exam: Present: RRR - GI/Abdominal GI/Abdominal exam: Present: diminished bowel sounds, distended, firm - Expanded Abdominal Exam GI/Abdominal exam: Present: ascites - Extremities Exam Extremities exam: Present: pedal edema - Expanded Upper Extremity Exam Forearm wrist exam: Present: swelling - Expanded Lower Extremity Exam Lower leg exam: Present: swelling - Neurological Exam Neurological exam: Present: alert (oriented to person, answers questions appropriatley) - Psychiatric Psychiatric exam: Present: agitated (restless). Absent: anxious - Skin Additional comments: jaundice Palliative Quality Palliative Quality: Screen for Code Status: Yes, Screen for Goals of Care: Yes, Screen for Pain: Yes, If Pain Regimen Started, Initiate Bowel Regimen: NA, Screen for Nausea/Vomitting: Yes Code Status: 06/24/16 15:36 Resuscitation Status: Active [RES] Routine Comment: Resuscitation Status: DNR-Comfort Care - Labs CBC & Chem 7: 06/28/16 09:52 06/28/16 09:52 Labs: Laboratory Results - last 24 hr 06/27/16 06/27/16 06/27/16 10:57 22:00 22:00 POC Glucose 127 H Urine Color [place] A Urine Clarity Turbid A Urine pH 5.5 Ur Specific [place] 1.022 Urine Protein 100 H Urine Glucose (UA) 100 H Urine Ketones Trace H Urine Blood Large H Urine Nitrite Positive A Urine Bilirubin Large H Urine Urobilinogen Normal Ur Leukocyte Esterase Moderate H Urine Microscopic RBC 50-100 H Urine Microscopic WBC 30-50 H Ur Eosinophil Smear 0 Ur Squamous Epith Cells Many H Amorphous Sediment Few Urine Bacteria Few Hyaline Casts Test Not Performed Granular Casts Few H Ur Culture Indicated? YES A Urine Sodium 32.0 06/27/16 22:22 POC Glucose 145 H Urine Color Urine Clarity Urine pH Ur Specific [place] Urine Protein Urine Glucose (UA) Urine Ketones Urine Blood Urine Nitrite Urine Bilirubin Urine Urobilinogen Ur Leukocyte Esterase Urine Microscopic RBC Urine Microscopic WBC Ur Eosinophil Smear Ur Squamous Epith Cells Amorphous Sediment Urine Bacteria Hyaline Casts Granular Casts Ur Culture Indicated? Urine Sodium - ABG Interpretation ABG results: PT/INR, D-dimer PT 18.1 Seconds (9.4-12.1) H 06/25/16 08:23 Consult Discharge Plan - Plan Referrals: Jose Juan Colón MD [Primary Care Provider] -
[2016-06-28] MEDS: traMADol 50 MG TABLET PO PRN (09:40)
[2016-06-28 10:04] LABS: Hemoglobin 10.7 g/dL (12.9-16.9); Mean Corpuscular HGB Conc 34.5 g/dL (31.6-35.5); Mean Corpuscular Hemoglobin 32.9 pg (28.0-33.3); Mean Corpuscular Volume 95.4 fL (83.0-100.0); Mean Platelet Volume 11.9 fL (9.4-12.4); Platelet Count 144 K/mcL (140-400); Red Blood Count 3.25 M/mcL (4.19-5.50); Red Cell Distribution Width 19.9 % (11.5-14.5)
[2016-06-28 10:09] LABS: Prothrombin Time 22.2 Seconds (9.4-12.1)
[2016-06-28 10:18] LABS: Basophils # 0.3 K/mcL (0.0-0.2); Eosinophils # 0.1 K/mcL (0.0-0.6); Lymphocytes # 0.1 K/mcL (0.6-4.6); Monocytes # 0.3 K/mcL (0.0-1.3); Neutrophils # 11.8 K/mcL (1.6-8.9); Platelet Estimate Normal (Normal)
[2016-06-28 10:25] LABS: Albumin 2.3 g/dL (3.5-5.0); Albumin/Globulin Ratio 0.8 (1.1-2.2); Bilirubin,Total 27.2 mg/dL (0.2-1.2); Calcium 8.1 mg/dL (8.6-10.8); Globulin 2.8 g/dL (2.4-3.5); Potassium 5.6 mEq/L (3.5-4.5); Total Protein 5.1 g/dL (6.0-8.3)
[2016-06-28] MEDS ORDERED: OxyCODONE CONC 5 MG/0.25 ML ORAL.SYG PO PRN (12:28)
[2016-06-28] MEDS: OxyCODONE CONC 5 MG/0.25 ML ORAL.SYG PO PRN ×5 (13:49→23:06)
[2016-06-28] MEDS ORDERED: *HR* FentaNYL (PF) 100 MCG/2 ML VIAL IVP PRN (13:52)
[2016-06-28] MEDS ORDERED: Scopolamine Patch 1.5 MG PATCH.TD72 TD SCH (14:00)
--- NOTE | 2016-06-28 15:22 | Electrocardiograph Report ---
[address] [place] [address] Test Date: 2016-06-26 Pat Name: Augustus Mae Department: 115 Room: 2A55 Gender: M [employer]: : 1935 Requested By: Selvin Lynch Order Number: [id number] Reading MD: Grupo Burns Measurements Intervals [place] Rate: 107 P: AK: 0 QRS: -11 QRSD: 110 T: 36 QT: 353 QTc: 416 Interpretive Statements ATRIAL FIBRILLATION WITH RAPID VENTRICULAR RESPONSE LOW QRS VOLTAGE IN PRECORDIAL LEADS SEPTAL MYOCARDIAL INFARCTION, OF INDETERMINATE AGE Electronically Signed On 06-28-2016 15:20:48 EDT by Grupo Burns
[2016-06-28 20:45] VITALS: BP 152/68
[2016-06-29] MEDS: OxyCODONE CONC 5 MG/0.25 ML ORAL.SYG PO PRN ×5 (01:27→10:46)
[2016-06-29] MEDS ORDERED: Pantoprazole 40 MG VIAL IVP SCH (07:00)
--- NOTE | 2016-06-29 07:45 | Event Note ---
Date of Encounter: 06/29/16 Time of Encounter: 07:45 Patient has been placed on comfort care only. Renal function continues to worsen. Unfortunately there is very little to offer. Nephrology will sign off.
--- NOTE | 2016-06-29 07:47 | Discharge Summary ---
Date of Encounter: 06/29/16 Time of Encounter: 07:44 - Discharge Diagnosis (1) Ascites Priority: Primary Status: Acute Qualifiers: Ascites type: malignant Qualified Code(s): R18.0 - Malignant ascites (2) Cholangiocarcinoma Priority: Primary Status: Chronic (3) Elevated INR Priority: Primary Status: Acute (4) Type 2 diabetes mellitus Priority: Secondary Status: Acute Qualifiers: Diabetes mellitus complication status: without complication Diabetes mellitus residential insulin use: with remote computer terminal operator use Qualified Code(s): E11.9 - Type 2 diabetes mellitus without complications; Z79.4 - terminal press operator (current) use of insulin (5) Atrial fibrillation Priority: Secondary Status: Chronic Qualifiers: Atrial fibrillation type: chronic Qualified Code(s): I48.2 - Chronic atrial fibrillation (6) STEPHANIE (acute kidney injury) Priority: Primary Status: Acute (7) Goals of care, counseling/discussion Priority: Primary Status: Acute - Discharge Medications Home Medications: Rivaroxaban [Xarelto] 20 mg PO DAILY #30 tablet 09/24/15 [Rx] Atenolol [Tenormin] 50 mg PO DAILY 06/04/16 [History] FentaNYL PATCH [Duragesic] 12 mcg TD Q72H #10 patch.td72 06/24/16 [Rx] Furosemide [Lasix] 20 mg PO DAILY #30 tablet 06/24/16 [Rx] Spironolactone [Aldactone] 50 mg PO DAILY #30 tablet 06/24/16 [Rx] Amlodipine [Norvasc] 5 mg PO DAILY 06/25/16 [History] Fluticasone Propionate Nasal [Flonase] 50 mcg NS DAILY 06/25/16 [History] Insulin LISPRO [Humalog] 0 - 10 unit SQ QID 06/25/16 [History] Insulin NPH, HUMAN [HumuLIN N] 10 unit SQ HS 06/25/16 [History] Loratadine [Allergy Relief] 10 mg PO DAILY 06/25/16 [History] Ondansetron HCl [Zofran] 4 mg PO Q6H PRN 06/25/16 [History] Pantoprazole Sodium [Protonix] 40 mg PO DAILY 06/25/16 [History] Tramadol HCl [Ultram] 50 mg PO Q4H PRN 06/25/16 [History] Allergies/Adverse Reactions: Allergies dabigatran etexilate [From Pradaxa] Adverse Reaction (Unknown, Verified 12:07) Migraine fesoterodine [From Toviaz] Adverse Reaction (Unknown, Verified 06/29/16 12:07) See Comments URINARY RETENTION lisinopril Adverse Reaction (Unknown, Verified 06/29/16 12:07) See Comments URINARY RETENTION Procedures/tests Complete & Pending: Procedures Performed prior 72 hours Category Date Time Status IR thoracentesis ultrasound [IR] Routine IR 06/29/16 Ordered ECG 12 lead ECG [ECG] Routine Y 06/26/16 13:42 Completed Date of admission: 06/24/16 16:42 Primary care physician: Jose Juan Colón MD Consults: 06/24/16 15:02 Consult to Breakdown Person [CONS] Routine Reason for SW Consult: Patient come from [facility] in [place]. Plan to return on discharge. 06/24/16 18:00 Consult to Occupational Therapy [CONS] Stat Comment: Evaluate, develop and implement POC Consult to Physical Therapy [CONS] Stat Comment: Evaluate, develop and implement POC 06/25/16 00:03 Consult to Interventional Radiology [CONS] Routine Consulting Provider: Radiology Interventional Cols Reason for Consult: for paracentesis and port placement Call Completed: No 06/27/16 07:36 Consult to Nephrology [CONS] Routine Consulting Provider: Kidney & HTN Spclst RICHARD Reason for Consult: please evaluate for worsening renal function in this patient with cholangiocarcinoma and jaundice. thank you' Call Completed: No 06/27/16 07:43 Consult to Palliative Care [CONS] Routine Comment: Consulting Provider: Palliative Care [place] 06/27/16 09:57 Consult to Urology [CONS] Stat Consulting Provider: Urology Irina Reason for Consult: catheter placement Call Completed: Yes 06/28/16 11:42 Consult to Interventional Radiology [CONS] Routine Consulting Provider: Radiology Interventional Cols Reason for Consult: eval for right thoracentesis; INR 2.0 Call Completed: Yes Discharging clinician: Selvin Lynch Anticipated date of discharge: 06/29/16 - Patient Status Disposition: Hospice - Medical Facility Condition: Serious Functional capacity at discharge: bed bound Overall status at discharge: patient is not back to baseline - Discharge Instructions Follow Up With: Jose Juan Colón MD [Primary Care Provider] - - Diet and Activity Activity: wear oxygen at all times Diet: other Interval History: Mr. Mae is a 80 year old male with hypertension, atrial fibrillation, diabetes, history of DVT and PE, on Xarelto, recent new diagnosis of cholangiocarcinoma. Patient recently diagnosed with cholangiocarcinoma via liver biopsy at [facility]. He received palliative radiation therapy and was discharged to [facility] 3 days ago. was sent to ED for admisiion for paracentesis as the INR was elevated. he was admitted, received albumin, FFP and lasix for the generalized anasarca. s/p IR guided therapeutic paracentesis , 2 l was removed this admission once the INR was <2. he tolerated the procedure well but started having chest pain , CXR now showed mod- to large pleural effsuion his urine output decreased and his kidney fxn started worsening, renal was consulted adn was started on lasix drip. he developed acute renal failure and the kidney function has worsened, he is not a candidate for HD given poor prognosis with the diagnosis of cholangiocarcinoma with mets. given cholangiocarcinoma with disease progression and rapid decline in [facility], he qualifies for hospice at this time. palliative was consulted adn he has been transitioned to hospice care with comfort measures only. Hospital course: Mr. Mae is a 80 year old male Time spent discussing smoking cessation with patient: more than 10 minutes - Time Spent with Patient Total time spent providing and/or coordinating discharge services: Greater than 30 minutes - Constitutional Vitals: Temp Pulse Resp BP Pulse Ox 97.8 F 97 22 152/68 92 L 06/28/16 20:35 06/28/16 20:35 06/28/16 20:35 06/28/16 20:35 06/28/16 20:35 General appearance: Present: A&O X 3, no acute distress Exam: - Head Head exam: Present: atraumatic, normocephalic - Eye Eye exam: Present: PERRL, scleral icterus, conjuntiva pink Pupils: Present: PERRL - Neck Neck exam general surgery: Present: supple, trachea midline. Absent: lymphadenopathy - Respiratory Respiratory exam: Present: decreased breath sounds on the right side, no creptns now. Absent: accessory muscle use, rales, rhonchi, wheezes - Cardiovascular Cardiovascular exam: Present: irregular rhythm, +S1, +S2. Absent: diastolic murmur, gallop, rubs, systolic murmur - GI/Abdominal GI/Abdominal exam: Present: distended, firm, normal bowel sounds, tenderness, no peritoneal signs - Extremities Exam Extremities exam: Present: pedal edema, warm, radial pulses palpable and symetrical. Absent: calf tenderness, cyanotic Additional comments: significant BUE and BUE edema - Neurological Exam Neurological exam: Present: CN II-XII intact, oriented X3, no focal deficits. Absent: facial droop, speech deficit - Skin Skin exam: Present: dry, deeply icteric. Absent: normal color - VTE Documentation of Mechanical Device: Intermittent pneumatic compression device
--- NOTE | 2016-06-29 09:53 | Event Note ---
Date of Encounter: 06/29/16 Time of Encounter: 09:51 Hospice diagnostic medical sonographer certification of terminal illness: Hospice benefit. Start: 06/29/2016 Hospice benefit. In: +90 days Palliative performance scale: 10-20% History: The patient has cholangiocarcinoma, for which there is no further treatment available. The patient has refractory ascites which are causing problems with his breathing, he should also has renal failure which is worsening. The patient does not wish to have any further aggressive care, even if there was any available. Therefore I find These findings support a life expectancy of 6 months or less. I attest that I have compose the above narrative based on my review of the patient's medical records, and or on my examination of the patient. Armond Magana M.D. Associate medical reimbursement specialist. [facility]
[2016-06-29] MEDS ORDERED: *HR* FentaNYL PATCH 12 MCG PATCH TD SCH (10:45)
== END 2016-06-29 11:09 | disposition hospice, inpatient (51) ==
LOC: 3ANU 10:37 → INTRAD 10:37 → 3ANU 13:44 → SUATTDRO 16:42 → 2ANU 06-27 17:01
PROVIDERS: ADMIT Internal Medicine; ATTEND Internal Medicine Endocrinology, Diabetes & Metabolism

== ENCOUNTER 2016-06-29 09:23 | Inpatient (IN) ==
[2016-06-29] MEDS ORDERED: Ondansetron 4 MG/2 ML VIAL IVP PRN (10:31)
[2016-06-29] MEDS ORDERED: *HR* LORazepam Oral Conc 2 MG/ML PO PRN (10:31)
[2016-06-29] MEDS ORDERED: *HR* LORazepam 2 MG/ML VIAL IVP PRN (10:31)
[2016-06-29] MEDS ORDERED: Haloperidol Lactate 5 MG/ML VIAL IVP PRN (10:31)
--- NOTE | 2016-06-29 10:42 | Palliative - Consult Note ---
Date of Encounter: 06/29/16 Time of Encounter: 10:41 - Assessment and Plan (1) Cancer associated pain Status: Acute Assessment and plan: Mr. Mae has been using oxycodone concentrate for the past 24-48 hours for cancer associated pain. He has used 9 doses in the past 24 hours. Will start Fentanyl Patch at 12mcg/hr and adjust accordingly. Discussed case with family including risks/benefits of treatment. (2) Anxiety Status: Acute Assessment and plan: May utilize lorazepam as needed for anxiety/agitation. (3) Ineffective airway clearance Status: Acute Assessment and plan: Scopolamine patch added yesterday. May use Atropine drops as needed for breakthrough secretions. Discussed secretion management with family. Underlying large right pleural effusion and ascites may also be contributing. (4) Ascites Status: Acute Assessment and plan: Ongoing ascites with paracentesis on 06/25/16. After 2L fluid removal, patient was no longer tolerating procedure. Evaluated for paracentesis on 06/28/16, but INR was elevated and he was not a candidate. Appears comfortable at this time. Will follow. Qualifiers: Ascites type: malignant Qualified Code(s): R18.0 - Malignant ascites (5) Dyspnea Status: Acute Assessment and plan: Utilize Fentanyl Patch to assist with symptms and breakthrough oxycodone as needed. Underlying large right pleural effusion likely contributor. He was evaluated for thoracentesis yesterday, but his INR was elevated. Qualifiers: Dyspnea type: unspecified Qualified Code(s): R06.00 - Dyspnea, unspecified (6) Goals of care, counseling/discussion Status: Acute Assessment and plan: Mr. Mae is now admitted to general in-patient hospice status for intense symptom management. Comfort medications are being titrated. Given his rapid decline in health, renal failure, along with his cancer, Mr. Mae is not expected to survive long. At this time, he would not be safe for transition out of the facility due to his fragile condition. Code status: DNR- CC. (7) Cholangiocarcinoma Status: Chronic Palliative-CN HPI - Data of Consult Patient: known to practice within the last 3 years Consult date: 06/29/16 Requesting Physician: Armond Magana MD - Consult Narrative Palliative Care/Comfort Measures: Palliative care Reason for consult: Symptom management History of present illness: Mr. Mae is a 80 year old male known to the palliative care team. Mr. Mae was diagnosed with cholangialcarcinoma approximately 3-4 weeks ago. He was evaluated at [facility]. The cancer was found to be inoperable. Mr. Mae completed palliative radiation to assist with pain control and obstructive jaundice. He remained physically active and able, resulting in a transfer to a local [facility] for physical therapy/rehab. After just 5 days at the facility, he began to develop worsening ascites. He was evaluated by interventional radiology, but his INR was elevated. He was then admitted for FFP administration and was able to have a paracentesis the following day on 06/25/16. Following the paracentesis, Mr. Mae developed an acute on chronic kidney injury. Nephrology was consulted, but despite optimal treatment, the patient's renal function declined. After meeting with the patient and family, the decision was made to pursue comfort measures and supportive care only. He is now admitted to general in-patient hospice care for symptom management. The palliative care team was consulted to assist with symptom management. CC: Armond Magana MD Past Med Surg Social Fam HX - Past Medical History Source: old records reviewed, obtained from family Medical history: atrial fibrillation, cancer (cholangiocarcinoma), DVT, diabetes , hypertension, malignancy, pulmonary embolus, renal disease, other (ascites, pleural effusion) Psychiatric history: no psych history - Past Surgical History Surgical History: other (prostate surgery for BPH, liver biopsy) - Social History Smoking Status: Former smoker Smokeless Tobacco Status: No Alcohol use: occasionally Drug use: none Current living situation: Home - Independent, With Family Activity Level: Bed bound - Family History Mother Living Status: Hx Family Cancer: Yes (breast cancer) Father Living Status: Hx Family Cardiac Disorders: Yes Sister Living Status: Hx Family Endocrine Disorder: Yes (Diabetes Mellitus) Hx Family Neurologic Disorders: Yes (CVA) Son Living Status: Still Living Medications and Allergies Rivaroxaban [Xarelto] 20 mg PO DAILY #30 tablet 09/24/15 [Rx] Atenolol [Tenormin] 50 mg PO DAILY 06/04/16 [History] FentaNYL PATCH [Duragesic] 12 mcg TD Q72H #10 patch.td72 06/24/16 [Rx] Furosemide [Lasix] 20 mg PO DAILY #30 tablet 06/24/16 [Rx] Spironolactone [Aldactone] 50 mg PO DAILY #30 tablet 06/24/16 [Rx] Amlodipine [Norvasc] 5 mg PO DAILY 06/25/16 [History] Fluticasone Propionate Nasal [Flonase] 50 mcg NS DAILY 06/25/16 [History] Insulin LISPRO [Humalog] 0 - 10 unit SQ QID 06/25/16 [History] Insulin NPH, HUMAN [HumuLIN N] 10 unit SQ HS 06/25/16 [History] Loratadine [Allergy Relief] 10 mg PO DAILY 06/25/16 [History] Ondansetron HCl [Zofran] 4 mg PO Q6H PRN 06/25/16 [History] Pantoprazole Sodium [Protonix] 40 mg PO DAILY 06/25/16 [History] Tramadol HCl [Ultram] 50 mg PO Q4H PRN 06/25/16 [History] Allergies dabigatran etexilate [From Pradaxa] Adverse Reaction (Unknown, Verified 07:21) Migraine fesoterodine [From Toviaz] Adverse Reaction (Unknown, Verified 06/04/16 07:21) See Comments URINARY RETENTION lisinopril Adverse Reaction (Unknown, Verified 06/04/16 07:21) See Comments URINARY RETENTION ROS unobtainable: due to mental status Palliative Care-Exam - Constitutional Exam: 80 year old male patient, terminally ill, family at bedside, jaundice, minimally responsive. - Eye Eye exam: Present: EOMI, scleral icterus - ENT ENT exam: Present: mucous membranes dry - Respiratory Respiratory exam: Present: decreased breath sounds (R>L), rhonchi. Absent: accessory muscle use, respiratory distress - Cardiovascular Cardiovascular exam: Present: RRR - GI/Abdominal Exam GI/Abdominal exam: Present: distended, firm - Expanded GI/Abdominal Exam GI/Abdominal exam: Present: ascites - Catheter Type: Urethral (Lopez) (scant tea colored urine output) - Extremities Exam Extremities exam: Present: pedal edema - Expanded Upper Extremities Exam Forearm wrist exam: Present: swelling - Expanded Lower Extremities Exam Lower Leg exam: Present: swelling - Neurological Exam Neurological exam: Absent: alert - Psychiatric Psychiatric exam: Absent: agitated, anxious - Skin Skin exam: Present: dry, warm Additional comments: jaundice Palliative Quality Palliative Quality: Screen for Code Status: Yes, Screen for Goals of Care: Yes, Screen for Pain: Yes, If Pain Regimen Started, Initiate Bowel Regimen: Yes, Screen for Nausea/Vomitting: Yes Code Status: 06/29/16 10:31 Resuscitation Status: Active [RES] Routine Comment: Resuscitation Status: DNR-Comfort Care
[2016-06-29] MEDS ORDERED: *HR* FentaNYL PATCH 12 MCG PATCH TD SCH (10:45)
--- NOTE | 2016-06-29 12:53 | Pallative History & Physical ---
Date of Encounter: 06/29/16 Time of Encounter: 13:00 Assessment and Plan (1) Anxiety Current visit: Yes Status: Acute Lorazepam as needed (2) Ineffective airway clearance Current visit: Yes Status: Acute Jt a mean patch, and atropine drops as needed. (3) Cancer associated pain Current visit: No Status: Acute Oxycodone concentrate for pain, as the patient has renal failure. Has a fentanyl patch. Patient is in the hospital for intensive control of symptoms at end-of-life. At this time hospice is not able to provide this care at home or in a snf therefore the patient will remain on general inpatient for the time being. (4) Goals of care, counseling/discussion Current visit: No Status: Acute DO NOT RESUSCITATE Comfort Care the patient's now under general inpatient hospice care. (5) Cholangiocarcinoma Current visit: No Status: Chronic Terminal diagnosis no further aggressive care is being entertained. Patient is under hospice care at this time. Internal Medicine - H&P: HPI Admitted From: Intrahospital Transfer Plans for Post Hospital Care: Hospice - Home History of present illness: Mr. Mae is a 80 year old male Diagnosed with cholangiocarcinoma approximate 3-4 weeks ago. She was found to be an operable in [place] and patient did complete some palliative radiation to assist with pain control and obstructive jaundice. Remain physically active as resulted in a transfer to a local [facility] for physical therapy and rehabilitation. But after 5 days he began to develop worsening ascites. Evaluated by interventional radiology but his INR was too high to justify a Pleurx catheter. Was able to tolerate a paracentesis afterward developed an acute on chronic kidney injury. Nephrology found to have little to offer. Patient decided to pursue comfort measures only with hospice. A she is being admitted to the hospital for general inpatient hospice care for symptom management. Symptoms are cancer associated pain as well as anxiety Past Med Surg Social Fam HX - Past Medical History Medical history: atrial fibrillation, cancer (cholangiocarcinoma), DVT, diabetes , hypertension, malignancy, pulmonary embolus, renal disease, other (ascites, pleural effusion) Psychiatric history: no psych history - Past Surgical History Surgical History: other (prostate surgery for BPH, liver biopsy) - Social History Smoking Status: Former smoker Smokeless Tobacco Status: No Alcohol use: occasionally Drug use: none - Family History Mother Living Status: Hx Family Cancer: Yes (breast cancer) Father Living Status: Hx Family Cardiac Disorders: Yes Sister Living Status: Hx Family Endocrine Disorder: Yes (Diabetes Mellitus) Hx Family Neurologic Disorders: Yes (CVA) Son Adopted: No Living Status: Still Living Internal Medicine - H&P: Meds Rivaroxaban [Xarelto] 20 mg PO DAILY #30 tablet 09/24/15 [Rx] Atenolol [Tenormin] 50 mg PO DAILY 06/04/16 [History] FentaNYL PATCH [Duragesic] 12 mcg TD Q72H #10 patch.td72 06/24/16 [Rx] Furosemide [Lasix] 20 mg PO DAILY #30 tablet 06/24/16 [Rx] Spironolactone [Aldactone] 50 mg PO DAILY #30 tablet 06/24/16 [Rx] Amlodipine [Norvasc] 5 mg PO DAILY 06/25/16 [History] Fluticasone Propionate Nasal [Flonase] 50 mcg NS DAILY 06/25/16 [History] Insulin LISPRO [Humalog] 0 - 10 unit SQ QID 06/25/16 [History] Insulin NPH, HUMAN [HumuLIN N] 10 unit SQ HS 06/25/16 [History] Loratadine [Allergy Relief] 10 mg PO DAILY 06/25/16 [History] Ondansetron HCl [Zofran] 4 mg PO Q6H PRN 06/25/16 [History] Pantoprazole Sodium [Protonix] 40 mg PO DAILY 06/25/16 [History] Tramadol HCl [Ultram] 50 mg PO Q4H PRN 06/25/16 [History] Allergies dabigatran etexilate [From Pradaxa] Adverse Reaction (Unknown, Verified 12:07) Migraine fesoterodine [From Toviaz] Adverse Reaction (Unknown, Verified 06/29/16 12:07) See Comments URINARY RETENTION lisinopril Adverse Reaction (Unknown, Verified 06/29/16 12:07) See Comments URINARY RETENTION ROS unobtainable: due to mental status Palliative Care-Exam - Constitutional General appearance: Present: no acute distress - Eye Eye exam: Present: normal appearance - ENT ENT exam: Present: mucous membranes dry - Respiratory Respiratory exam: Present: decreased breath sounds, rhonchi - Cardiovascular Cardiovascular exam: Present: RRR - GI/Abdominal Exam GI/Abdominal exam: Present: diminished bowel sounds, firm. Absent: soft - Catheter Type: Urethral (Lopez) - Extremities Exam Extremities exam: Present: pedal edema. Absent: tenderness - Neurological Exam Neurological exam: Present: altered - Psychiatric Psychiatric exam: Absent: agitated, anxious - Skin Skin exam: Present: dry, warm Palliative Quality Palliative Quality: Screen for Code Status: Yes, Screen for Goals of Care: Yes, Screen for Pain: Yes, If Pain Regimen Started, Initiate Bowel Regimen: Yes, Screen for Nausea/Vomitting: Yes Code Status: 06/29/16 10:31 Resuscitation Status: Active [RES] Routine Comment: Resuscitation Status: DNR-Comfort Care
[2016-06-29] MEDS: OxyCODONE CONC 5 MG/0.25 ML ORAL.SYG PO PRN ×5 (14:55→23:38)
[2016-06-29] MEDS: Atropine Sulfate 1% 40 DROP/2 ML BOTTLE SL PRN ×5 (16:48→23:38)
[2016-06-29] MEDS: *HR* HYDROmorphone (PF) 1 MG/ML SYRINGE IVP PRN (22:29)
[2016-06-30] MEDS: Atropine Sulfate 1% 40 DROP/2 ML BOTTLE SL PRN ×9 (00:37→11:37)
[2016-06-30] MEDS: OxyCODONE CONC 5 MG/0.25 ML ORAL.SYG PO PRN ×5 (01:43→11:37)
[2016-06-30] MEDS: *HR* HYDROmorphone (PF) 1 MG/ML SYRINGE IVP PRN (04:09)
[2016-06-30] MEDS ORDERED: Pantoprazole 40 MG VIAL IVP SCH (09:00)
--- NOTE | 2016-06-30 09:40 | Palliative Progress Note ---
Date of Encounter: 06/30/16 Time of Encounter: 07:25 - Assessment and plan (1) Anxiety Current Visit: Yes Status: Acute Assessment and plan: Lorazepam as needed, has not required any. (2) Ineffective airway clearance Current Visit: Yes Status: Acute Assessment and plan: Jt a mean patch, and atropine drops as needed. Continues to be a problem although the atropine is helping. Watch. (3) Cancer associated pain Current Visit: No Status: Acute Assessment and plan: Oxycodone concentrate for pain, as the patient has renal failure. Has a fentanyl patch. Patient is in the hospital for intensive control of symptoms at end-of-life. At this time hospice is not able to provide this care at home or in a long-term therefore the patient will remain on general inpatient for the time being. Appears to be under reasonable control at this time continue current medications. It continues to be apparent that the patient will require more care than can be provided at a long-term or at home therefore Main on general inpatient (4) Goals of care, counseling/discussion Current Visit: No Status: Acute Assessment and plan: DO NOT RESUSCITATE Comfort Care the patient's now under general inpatient hospice care. (5) Cholangiocarcinoma Current Visit: No Status: Chronic Assessment and plan: Terminal diagnosis no further aggressive care is being entertained. Patient is under hospice care at this time. - Time Spent With Patient Total time spent is greater than 50% in coordination of care (as documented) at patient's floor/unit and/or counseling patient: - Subjective Interval history: Patient is comfortable during the course of the night is requiring a fair amount of pain medication Spells. The patient does appear to be in the early stages of active dying. - Constitutional General appearance: Present: no acute distress - Head Head exam: Present: atraumatic, normal inspection - Eye Eye exam: Present: normal appearance - ENT ENT exam: Present: mucous membranes dry - Respiratory Respiratory exam: Present: decreased breath sounds (Very slow with apneic spells ) - Cardiovascular Cardiovascular exam: Present: RRR - GI/Abdominal GI/Abdominal exam: Present: hypoactive bowel sounds, soft. Absent: tenderness - Extremities Exam Extremities exam: Present: pedal edema - Neurological Exam Neurological exam: Present: altered - Psychiatric Psychiatric exam: Absent: agitated, anxious - Skin Skin exam: Present: dry, warm. Absent: normal color (Very jaundiced no mottling ) Palliative Quality Palliative Quality: Screen for Code Status: Yes, Screen for Goals of Care: Yes, Screen for Pain: Yes, If Pain Regimen Started, Initiate Bowel Regimen: Yes, Screen for Nausea/Vomitting: Yes Code Status: 06/29/16 10:31 Resuscitation Status: Active [RES] Routine Comment: Resuscitation Status: DNR-Comfort Care Consult Discharge Plan - Plan Referrals: Jose Juan Colón MD [Primary Care Provider] -
--- NOTE | 2016-06-30 13:25 | Death Note ---
Discharge Sum: Summary - Date and Time Date of admission: 06/29/16 11:19 Date of : 06/30/16 Time of : 13:00 - Summary Details: The patient was brought onto the general inpatient hospice service for management at end-of-life. The patient did have terminal cancer and was also in renal failure. Patient's symptoms were aggressively managed and he passed comfortably at 1300 hrs. today with family at bedside. Cause of respiratory failure secondary to cholangiocarcinoma , comorbidities include atrial fibrillation, DVT, diabetes, hypertension, pulmonary embolus, renal failure. he was a former smoker. - Additional Data Confirmation of as documented by pronouncing clinician: no pulse, no respirations, no heart sounds Family: at bedside Additional persons at bedside: shaan Attending/PCP notified?: Yes Attending physician: Armond Magana MD Was code activated?: No Autopsy requested?: No forensic science examiner notified?: No Organ bank notified?: Yes Advance directives: Yes Hospice patient?: Yes Discharge Sum: Diag - PCOD Probable Cause of : Respiratory arrest Discharge Sum: Prov - Provider Primary care physician: Jose Juan Colón MD Consults: 06/29/16 10:31 Consult to Palliative Care [CONS] Routine Comment: Consulting Provider: Palliative Care Irina
[2016-07-01] MEDS ORDERED: Scopolamine Patch 1.5 MG PATCH.TD72 TD SCH (10:45)
== END 2016-06-30 16:25 | disposition expired | DRG 435 ==
LOC: 2ANU 11:19
PROVIDERS: ADMIT Family Medicine Hospice and Palliative Medicine; ATTEND Family Medicine Hospice and Palliative Medicine